=== PATIENT | female | born 1970 | race Caucasian/White ===

== ENCOUNTER 2024-04-29 01:29 | Emergency (ER) | payer MEDICAID, SELFPAY ==
[2024-04-29] VITALS (14 sets, daily range): BP systolic 100–151; BP diastolic 62–106; PULSE 58–102; RESP 18–26; TEMP 36.3–37.2; O2SAT 94–100; BMI 21.5
--- NOTE | ~2024-04-29 | CT_ITS ---
EXAMINATION: CT HEAD WITHOUT CONTRAST CLINICAL INFORMATION: Change in mental status COMPARISON: None available. TECHNIQUE: Contiguous axial imaging was performed from the skull base to vertex without intravenous administration of contrast. This CT examination was performed using dose optimization techniques as appropriate, variously including the following: *Automated exposure control *Adjustment of mA and/or kV according to patient size (this includes techniques or standardized protocols for targeted exams where dose is matched to indication/reason for exam; i.e. extremities or head) *Use of iterative reconstruction technique DLP: 667 mGy-cm FINDINGS: There is no mass hemorrhage or cerebral edema. The ventricles and basal cisterns are normal. Soft tissue/scalp normal. Calvarium/bone: Normal. No fracture. Sinuses: Prominent mucosal thickening of the ethmoid sinuses and left sphenoid sinus. Mastoid air cells clear. CT/CT head/brain wo IV con IMPRESSION: 1. No acute intracranial pathology. 2. Sinus disease likely chronic.
--- NOTE | 2024-04-29 01:44 | MHC.EDTECH ---
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
[2024-04-29] MEDS: LORazepam 2 MG/ML VIAL IM ×2 (02:15→03:24)
[2024-04-29] MEDS: Haloperidol Lactate 5 MG/ML VIAL IM (02:15)
--- NOTE | 2024-04-29 02:26 | MHC.EDTECH ---
Patient vomited all over herself and on the floor ,bed bath given and bedding change,Patient very restless yelling and removing school lunch monitor and Pulse ox ,RN Freya aware ,Will attached school lunch monitor and Pulse ox once Pt calm
--- NOTE | 2024-04-29 02:31 | PC.NURSE ---
pt IM per MAR
--- NOTE | 2024-04-29 02:49 | PC.NURSE ---
sitter at bedside, pt removing gown and blankets, trying to climb out of bed, up on all 4s rolling around and yelling. pt very restless, unable to redirect. unable to obtain vitals at this time. provider aware.
--- NOTE | 2024-04-29 03:15 | ED_ITS ---
HPI - Overdose General Chief Complaint: Overdose Stated Complaint: OVERDOSE Time Seen by Provider: 04/29/24 02:10 Source: patient and EMS Mode of arrival: EMS Limitations: altered mental status History of Present Illness ED Provider: frank GUZMAN Narrative: Patient's history of substance abuse was found unresponsive out door PD gave 1 dose of 4 mg intranasal Narcan patient is admitted using 1 bag of heroin. Patient is very agitated after Narcan no signs of head injury Related Data Allergies Allergy/AdvReac Type Severity Reaction Status Date / Time No Known Allergies Allergy Verified 04/29/24 02:16 [No Known Allergies*] Review of Systems 2 Review of Systems: Yes Unobtainable due to mental status PMFSH Social History Social History Advance Directives: No Advance Directives Information Provided: No Physical Exam 2 Vital Signs: Vital Signs: Last Vital Signs Temp 97.4 F 04/29/24 06:17 Pulse 72 04/29/24 06:17 Resp 24 H 04/29/24 06:17 BP 120/79 04/29/24 06:17 Pulse Ox 98 04/29/24 06:17 O2 Del Method Room Air 04/29/24 06:17 BMI result Body Mass Index 21.5 Appearance: Awake but agitated. Thrashing all over. Eyes: PERRLA, No Nystagmus ENT: Pharynx normal. Oral Mucosa moist Neck: Normal inspection. Neck supple. CVS: Normal heart rate and rhythm. Pulses normal. Respiratory: No respiratory distress. Equal air entry bilateral, no wheezing/rales/rhonchi Abdomen: Soft and nontender. Bowel sounds are present, no mass palpable, no CVA tenderness Skin: Skin warm and dry. Normal skin color. Normal skin turgor. Extremities: No lower extremity edema. No calf tenderness Neuro: Alert and awake but agitated No motor deficit. Course Course Course Narrative: placed in physician observation at 739am pending recovering from IM medications and substance abuse, once awake will assess for recovery and detox needs. VS stable, MARIELLA 04/29/24 740am Medications Administered Discontinued Medications Generic Name Dose Route Start Last Admin Trade Name Freq PRN Reason Stop Dose Admin Diphenhydramine HCl 50 mg 04/29/24 03:12 04/29/24 03:24 Diphenhydramine Hcl 50 Mg/Ml Vial IM 04/29/24 03:13 50 mg ONCE ONE Administration Haloperidol Lactate 5 mg 04/29/24 02:10 04/29/24 02:15 Haloperidol Lactate 5 Mg/Ml Vial IM 04/29/24 02:11 5 mg ONCE ONE Administration Sodium Chloride 1,000 mls @ 999 mls/hr 04/29/24 06:06 04/29/24 06:14 Ns IV 04/29/24 07:06 999 mls/hr .Q1H1M ONE Administration Ketamine HCl 100 mg 04/29/24 05:33 04/29/24 05:59 Ketamine Hcl 500 Mg/5 Ml Vial IM 04/29/24 05:34 100 mg ONCE ONE Administration Lorazepam 2 mg 04/29/24 02:10 04/29/24 02:15 Lorazepam 2 Mg/Ml Vial IM 04/29/24 02:11 2 mg STAT STA Administration Lorazepam 2 mg 04/29/24 03:12 04/29/24 03:24 Lorazepam 2 Mg/Ml Vial IM 04/29/24 03:13 2 mg STAT STA Administration Medical Decision Making Medical Decision Making [facility] Narrative: Patient with heroin overdose post Narcan reversal patient is very agitated requiring multiple doses of sedative ultimately responded to ketamine patient's labs are stable CK was elevated to 810 was given IV fluids once patient's wakes of will get care team consultation Differential Diagnosis Differential Diagnoses: The differential diagnosis associated with the presentation includes Lab Data [facility] Lab Attestation statement: I reviewed the patient's lab results. 04/29/24 05:11 04/29/24 05:11 Labs: Lab Results 04/29/24 04/29/24 Range/Units 04:36 05:11 WBC 11.3 H (4.8-10.8) X10*3/uL RBC 4.75 (4.20-5.50) X10*6/uL Hgb 13.9 (12.0-16.0) g/dl Hct 41.8 (37.0-47.0) % MCV 88.0 (80.0-98.0) fL MCH 29.3 (27.0-33.0) pg MCHC 33.3 (31.0-35.0) g/dl RDW 14.2 (11.0-16.0) % Plt Count 240 (160-400) X10*3/uL MPV 9.2 L (9.4-12.3) fL Immature Gran % (Auto) 0.3 (0.0-0.4) % Neut % (Auto) 83.7 H (45-73) % Lymph % (Auto) 8.7 L (20-40) % [place] % (Auto) 6.3 (2-11) % Eos % (Auto) 0.4 (0-4) % Baso % (Auto) 0.6 (0-2) % Lymph # (Auto) 1.0 L (1.2-4.9) X10*3/uL [place] # (Auto) 0.7 (0.1-1.2) X10*3/uL Eos # (Auto) 0.1 (0.0-0.4) X10*3/uL Baso # (Auto) 0.1 (0.0-0.2) X10*3/uL Abs Immat Gran (auto) 0.03 (0.00-0.03) X10*3/uL Absolute Neuts (auto) 9.5 H (2.0-8.3) x10*3/uL Absolute Nucleated RBC 0.000 (0.0-0.012) X10*3/uL Nucleated RBC % (auto) 0.0 (0.0-0.2) /100WBC Sodium 145 (135-145) mmol/L Potassium 3.3 (3.3-5.1) mmol/L Chloride 105 (96-108) mmol/L Carbon Dioxide 23 (22-29) mmol/L Anion Gap 20 (12-20) BUN 14 (9-16) mg/dL Creatinine 0.79 (0.5-1.4) mg/dL Estim Creat Clear Calc 68.9 Estimated GFR > 60 Random Glucose 100 (60-115) mg/dL Calcium 9.7 (8.4-10.2) mg/dL Magnesium 1.8 (1.6-2.6) mg/dL Total Bilirubin 0.4 (0.0-1.0) mg/dL AST 50 H (5-31) U/L ALT 29 (0-31) U/L Alkaline Phosphatase 70 (39-117) U/L Ammonia 26 (13-55) umol/L Total Creatine Kinase 810 H (26-140) U/L Total Protein 7.9 (6.5-8.0) g/dL Albumin 4.2 (3.5-5.0) g/dL COVID-19 (SHEYLA) Negative (Negative) COVID-19 Clin Com See Note Discharge Plan Discharge Clinical Impression: Rhabdomyolysis Drug overdose Qualifiers: Encounter type: initial encounter Injury intent: accidental or unintentional Q ualified Code(s): T50.901A - Poisoning by unspecified drugs, medicaments and biological substances, accidental (unintentional), initial encounter Patient Disposition: Still a Patient Print Language: Bulgarian
[2024-04-29] MEDS: diphenhydrAMINE HCL 50 MG/ML VIAL IM (03:24)
--- NOTE | 2024-04-29 03:32 | PC.NURSE ---
pt remains restless and rolling around in the bed, trying to get out of bed over the rails. pt IM per MAR
--- NOTE | 2024-04-29 04:25 | PC.NURSE ---
pt broke BP cuff while trying to obtain vitals d/t restlessness in bed
[2024-04-29 05:00] LABS: COVID-19 Test Negative (Negative); IDNOW Serial# 6674DD1D
[2024-04-29 05:16] LABS: Basophils Absolute Auto 0.1 X10*3/uL (0.0-0.2); Basophils Percent Auto 0.6 % (0-2); Eosinophils Absolute Auto 0.1 X10*3/uL (0.0-0.4); Eosinophils Percent Auto 0.4 % (0-4); Hematocrit 41.8 % (37.0-47.0); Hemoglobin 13.9 g/dl (12.0-16.0); Imm Gran Abs Auto 0.03 X10*3/uL (0.00-0.03); Imm Gran Pct Auto 0.3 % (0.0-0.4); Lymphocytes Percent Auto 8.7 % (20-40); MANUAL DIFF FLAG NO; Mean Corpuscular HGB Conc 33.3 g/dl (31.0-35.0); Mean Corpuscular Hemoglobin 29.3 pg (27.0-33.0); Mean Platelet Volume 9.2 fL (9.4-12.3); Monocytes Absolute Auto 0.7 X10*3/uL (0.1-1.2); Monocytes Percent Auto 6.3 % (2-11); Neutrophils Absolute Auto 9.5 x10*3/uL (2.0-8.3); Neutrophils Percent Auto 83.7 % (45-73); Platelet Count 240 X10*3/uL (160-400); Red Blood Count 4.75 X10*6/uL (4.20-5.50); Red Cell Distribution Width 14.2 % (11.0-16.0); White Blood Count 11.3 X10*3/uL (4.8-10.8)
--- NOTE | 2024-04-29 05:17 | PC.NURSE ---
vitals and labs obtained
--- NOTE | 2024-04-29 05:23 | PC.NURSE ---
pt attempting to bite staff, pt remains restless unable to keep on monitor
[2024-04-29 05:32] LABS: Ammonia 26 umol/L (13-55)
[2024-04-29 05:41] LABS: Alanine Aminotransferase 29 U/L (0-31); Albumin Level 4.2 g/dL (3.5-5.0); Alkaline Phosphatase 70 U/L (39-117); Anion Gap 20 (12-20); Aspartate Amino Transferase 50 U/L (5-31); Bilirubin Total 0.4 mg/dL (0.0-1.0); Blood Urea Nitrogen 14 mg/dL (9-16); Calcium 9.7 mg/dL (8.4-10.2); Carbon Dioxide 23 mmol/L (22-29); Chloride 105 mmol/L (96-108); Creatinine Clr Calc Pharmacy 68.9; Estimated Glomerular Filt Rate > 60; Glucose Random 100 mg/dL (60-115); Magnesium 1.8 mg/dL (1.6-2.6); Potassium 3.3 mmol/L (3.3-5.1); Sodium 145 mmol/L (135-145); Total Protein 7.9 g/dL (6.5-8.0)
[2024-04-29] MEDS: Ketamine HCl 500 MG/5 ML VIAL 100 MG IM (05:59)
--- NOTE | 2024-04-29 06:03 | PC.NURSE ---
pt medicated per cristy ROMANOter remains at bedside
[2024-04-29] MEDS: 0.9 % Sodium Chloride 1,000 ML 999 ML IV ×2 (06:14→16:08)
--- NOTE | 2024-04-29 06:15 | PC.NURSE ---
pt now calm and cooperative at this time, resting comfortably with eyes closed, breathing even and unlabored. 20g IV placed to L forearm, wrapped for safety. IVF infusing, full set of vitals obtained. pt on monitor
--- NOTE | 2024-04-29 08:56 | PC.NURSE ---
Pt sleeping at this time, breathing even and unlabored. NSR on hospital monitor, VSS. Camera in place.
--- NOTE | 2024-04-29 13:46 | PC.NURSE ---
Pt continues to sleep, vitals stable, NSR on director of cardiac cath lab. Pt bladder scanned, charted. Pt does turn over in bed, moans.
--- NOTE | 2024-04-29 15:27 | PC.NURSE ---
Pt taken to CT scan
--- NOTE | 2024-04-29 16:30 | PC.NURSE ---
Per MD order, straight cath pt due to no urine output >8 hours. Pt straight cath with no issues, output of approx 300 mL yellow urine. Rectal temp 99.0F. Pt has no verbal response, does withdrawal from pain.
[2024-04-29 16:32] LABS: MANUAL DIFF FLAG NO
[2024-04-29 16:34] LABS: Basophils Absolute Auto 0.1 X10*3/uL (0.0-0.2); Basophils Percent Auto 0.8 % (0-2); Eosinophils Absolute Auto 0.2 X10*3/uL (0.0-0.4); Eosinophils Percent Auto 2.2 % (0-4); Hematocrit 37.9 % (37.0-47.0); Hemoglobin 12.9 g/dl (12.0-16.0); Imm Gran Abs Auto 0.03 X10*3/uL (0.00-0.03); Imm Gran Pct Auto 0.3 % (0.0-0.4); Lymphocytes Absolute Auto 1.8 X10*3/uL (1.2-4.9); Lymphocytes Percent Auto 19.6 % (20-40); Mean Corpuscular Hemoglobin 29.7 pg (27.0-33.0); Mean Corpuscular Volume 87.1 fL (80.0-98.0); Mean Platelet Volume 9.3 fL (9.4-12.3); Monocytes Absolute Auto 0.8 X10*3/uL (0.1-1.2); Monocytes Percent Auto 8.8 % (2-11); Neutrophils Absolute Auto 6.3 x10*3/uL (2.0-8.3); Neutrophils Percent Auto 68.3 % (45-73); Platelet Count 214 X10*3/uL (160-400); Red Blood Count 4.35 X10*6/uL (4.20-5.50); Red Cell Distribution Width 14.5 % (11.0-16.0); White Blood Count 9.2 X10*3/uL (4.8-10.8)
[2024-04-29 16:37] LABS: VBG Base Excess 0.5 mmol/L; VBG HCO3 23 mmol/L (22-26); VBG pCO2 33 mmHg; VBG pH 7.45 (7.32-7.43); VBG pO2 76 mmHg
[2024-04-29 16:37] LABS: Venous Blood Gas Refer to POC result
[2024-04-29 16:40] LABS: Amphetamine Screen Urine Not Detected (Not Detect); Barbiturates, Urine Not Detected (Not Detect); Benzodiazepines Screen Urine Not Detected (Not Detect); Buprenorphine Scr Not Detected (Not Detect); Cannabinoid Screen Urine Not Detected (Not Detect); Cocaine Screen Urine POSITIVE (Not Detect); Fentanyl, urine POSITIVE (Not Detect); Methadone Screen, Urine Not Detected (Not Detect); Opiate Screen Urine POSITIVE (Not Detect); Oxycodone Screen Urine Not Detected (Not Detect); Phencyclidine Screen Urine Not Detected (Not Detect)
[2024-04-29 16:49] LABS: Anion Gap 13 (12-20); Blood Urea Nitrogen 10 mg/dL (9-16); Calcium 8.8 mg/dL (8.4-10.2); Carbon Dioxide 22 mmol/L (22-29); Chloride 112 mmol/L (96-108); Creatinine Clr Calc Pharmacy 83.7; Estimated Glomerular Filt Rate > 60; Glucose Random 84 mg/dL (60-115); Potassium 3.7 mmol/L (3.3-5.1); Sodium 143 mmol/L (135-145)
[2024-04-29 18:25] LABS: Appearance Urine Clear; Color Urine Yellow; Glucose Urine UA Negative (Negative); Leukocyte Esterase Urine Negative (Negative); Nitrite Urine Negative (Negative); UMIC TRIGGER UACC YES; Urine Blood Moderate (2+) (Negative); Urine Ketones Negative (Negative); Urine Protein Negative (Neg-Trace)
[2024-04-29 18:31] LABS: Bacteria Urine None Seen (None Seen); Hyaline Casts Urine 0-2 /LPF (0-2); RBC Urine >20 /HPF (0-2); Squamous Epithelial Cell Urine 0-2 /HPF (0-2); WBC Urine 0-5 /HPF (0-5)
--- NOTE | 2024-04-29 22:05 | PC.NURSE ---
pt resting comfortably in bed with eyes closed, breathing even and unlabored. no apparent distress noted at this time. call kingsley w/in reach. camera in place for safety
[2024-04-30] VITALS: BP 114/56; PULSE 55; RESP 15; TEMP 36.4; O2SAT 96
[2024-04-30 02:00] VITALS: BP 150/87; PULSE 50; RESP 20; TEMP 36.4; O2SAT 98
--- NOTE | 2024-04-30 03:18 | PC.NURSE ---
pt awakens to verbal stim, gave juice. pt then went back to bed
[2024-04-30 04:00] VITALS: BP 117/75; PULSE 55; RESP 12; TEMP 36.6; O2SAT 97
--- NOTE | 2024-04-30 05:39 | PC.NURSE ---
pt awake at this time, incont of urine in bed. assist to bathroom to wash and change gown. bed cleaned. pt given juice and sandwich.
[2024-04-30 05:57] VITALS: BP 112/64; PULSE 59; RESP 14; TEMP 36.4; O2SAT 95
--- NOTE | 2024-04-30 06:57 | PC.NURSE ---
pt awake, eating breakfast. refusing to answer assessment questions
--- NOTE | 2024-04-30 07:11 | PC.NURSE ---
report recieved from previous rn, patient resting on stretcher, was woken up by MD, patient provided with breakfast tray, stating to this RN that she does not want to eat it, this RN asked patient where she would go if she was discharged, patient states to my house asked patient if there would be anyone there to let her in, patient states that there is.
--- NOTE | 2024-04-30 08:26 | PC.NURSE ---
patient resting on stretcher, awakes when this RN calls her name, was walked to bathroom by EDT, not requesting detox or treatment at this time. made aware
--- NOTE | 2024-04-30 08:27 | PC.NURSE ---
patient denies SI/HI
[2024-04-30 08:42] VITALS: BP 128/76; PULSE 79; RESP 18; TEMP 37; O2SAT 100
--- NOTE | 2024-04-30 08:49 | PC.NURSE ---
patient ambulatory with steady gait out of department, discharge instructions reviewed, patient states she does not have a phone on her and she does not have a number she can call, but she states she will walk home.
== END 2024-04-30 08:49 | disposition home or self-care (01) ==
PROVIDERS: Emergency Medicine; Internal Medicine; Emergency Provider Emergency Medicine
DX: M62.82 Rhabdomyolysis (principal); T40.1X1A Poisoning by heroin, accidental (unintentional), initial encounter; R40.4 Transient alteration of awareness; Y92.9 Unspecified place or not applicable; F19.10 Other psychoactive substance abuse, uncomplicated; R45.1 Restlessness and agitation; R33.9 Retention of urine, unspecified; Z11.52 Encounter for screening for COVID-19
CPT/HCPCS: 36415; 51701; 70450; 80048; 80053; 80307; 81001; 82140; 82550; 82803; 83735; 85025; 87635; 96360; 96361; 96372; 99285; J1200; J1630; J2060

== ENCOUNTER 2025-02-22 20:33 | Emergency (ER) | payer MEDICAID, SELFPAY ==
[2025-02-22 20:36] VITALS: BP 126/74; PULSE 98; O2SAT 96; BMI 20.1
--- NOTE | 2025-02-22 20:46 | ECG_ITS ---
Test Reason : OD Blood Pressure : */* mmHG Vent. Rate : 90 BPM Atrial Rate : 90 BPM P-R Int : 132 ms QRS Dur : 74 ms QT Int : 380 ms P-R-T Axes : 49 61 45 degrees QTcB Int : 464 ms Normal sinus rhythm Possible Left atrial enlargement Cannot rule out Anteroseptal infarct , age undetermined Abnormal ECG When compared with ECG of 03-Jan-2013 15:29, Possible Anteroseptal infarct Present Referred By: Generic ED Physician Electronically Signed By: WINNIE HENRY MD
[2025-02-22 20:51] VITALS: BP 125/81; PULSE 90; RESP 16; TEMP 36.6; O2SAT 97
--- NOTE | 2025-02-22 21:14 | ED_ITS ---
HPI - Overdose General Chief Complaint: Overdose Stated Complaint: OD, no narcan given, ca&0 Time Seen by Provider: 02/22/25 20:49 History of Present Illness ED Provider: Madan Grajeda MD HPI Narrative: This is a 54-year-old female brought in by EMS after police found her slumped over on a curb. She was not administered any naloxone or reversal agents and was maintaining airway. Minimal history provided by the patient and she was uncooperative and drowsy but easily arousable on arrival. No obvious external signs of trauma. She did not require opioid reversal on arrival Related Data Allergies Allergy/AdvReac Type Severity Reaction Status Date / Time No Known Allergies Allergy Verified 02/22/25 20:42 [No Known Allergies*] [facility] Social History Social History Unable to assess alcohol history related to: Unknown Alcohol intake: unknown Use of substances other than those prescribed or required for medical reasons: Unknown Advance Directives: No Do you have a plan to hurt others: No Plan Physical Exam 2 Vital Signs: Vital Signs: Last Vital Signs Temp 97.6 F 02/23/25 21:11 Pulse 76 02/23/25 21:11 Resp 16 02/23/25 21:11 BP 133/66 02/23/25 21:11 Pulse Ox 96 02/23/25 21:11 O2 Del Method Room Air 02/23/25 21:11 BMI result Body Mass Index 20.1 Const: Other: EXAM: Gen: Drowsy but easily arousable no obvious external signs of trauma. She has 3-4 mm pupils symmetric and reactive Head: Atraumatic Eyes: Anicteric, Normal conjunctiva. ENT: Moist mucosa, no pallor. ? Neck: Supple. Skin: ?No observable rash or bruising on exposed or examined skin Respiratory: Breathing comfortably, No distress.Clear to auscultation bilaterally, symmetric chest expansion, No wheeze, rales, ronchi. Cardiovascular: Regular rate and rhythm. No murmurs or rub. Well perfused periphery, warm extremities. No edema. ? Abdominal: No FOCAL TENDERNESS. Soft, no objective distension. No palpable masses or obvious organomegaly. ?No guarding, no rebound tenderness or other peritoneal findings. : No flank tenderness. Neuro: Alert. Gross movement of all extremities intact. ? Psych: Calm. Cooperative. MSK: No grossly visible deformity. Vital signs: See flowsheet Course Reevaluation(s) Reevaluation #1: 02/23/25 - 18:03- Physician observation continued. Patient difficult to arouse and will not answer questions. Will continue until she is more participatory Reevaluation #2: patient received in sign-out at change of shift pending sober re-evaluation. The patient is awake, alert and oriented. she reports that she still feels tired. She has been up to the bathroom, she was provided a sandwich, crackers and a yvette zenobia which she ate some of. She is stable for Time: 20:27 Medications Administered Discontinued Medications Generic Name Dose Route Start Last Admin Trade Name Freq PRN Reason Stop Dose Admin Naloxone HCl 8 mg 02/23/25 20:28 02/23/25 20:47 Naloxone Hcl Nasal Take Home 4 Mg [place] NOSTRILALT 02/23/25 20:29 8 mg ONCE ONE Administration Medical Decision Making Medical Decision Making [facility] Narrative: 54-year-old female uncooperative with history taking exam does not suggest acute medical emergency. Labs were reassuring. She is protecting airway and has a reasonable respiratory rate above 10 she did not not need opioid reversal. No traumatic injuries or other identifiable actionable findings on labs or workup thus far. Patient needs continued monitoring for sobriety and reassessment signed out to overnight physician. Differential Diagnosis Differential Diagnoses: The differential diagnosis associated with the presentation includes Toxicologic or metabolic encephalopathy, injury, electrolyte derangement, dehydration, psychosocial issue, Lab Data [facility] Lab Attestation statement: I reviewed the patient's lab results. 02/23/25 00:08 02/22/25 21:13 Labs: Lab Results 02/22/25 02/23/25 Range/Units 21:13 00:08 WBC 6.9 (4.8-10.8) X10*3/uL RBC 4.60 (4.20-5.50) X10*6/uL Hgb 13.6 (12.0-16.0) g/dl Hct 40.5 (37.0-47.0) % MCV 88.0 (80.0-98.0) fL MCH 29.6 (27.0-33.0) pg MCHC 33.6 (31.0-35.0) g/dl RDW 13.7 (11.0-16.0) % Plt Count 218 (160-400) X10*3/uL MPV 8.8 L (9.4-12.3) fL Immature Gran % (Auto) 0.1 (0.0-0.4) % Neut % (Auto) 57.4 (45-73) % Lymph % (Auto) 27.1 (20-40) % [place] % (Auto) 10.0 (2-11) % Eos % (Auto) 4.2 H (0-4) % Baso % (Auto) 1.2 (0-2) % Lymph # (Auto) 1.9 (1.2-4.9) X10*3/uL [place] # (Auto) 0.7 (0.1-1.2) X10*3/uL Eos # (Auto) 0.3 (0.0-0.4) X10*3/uL Baso # (Auto) 0.1 (0.0-0.2) X10*3/uL Abs Immat Gran (auto) 0.01 (0.00-0.03) X10*3/uL Absolute Neuts (auto) 3.9 (2.0-8.3) x10*3/uL Absolute Nucleated RBC 0.000 (0.0-0.012) X10*3/uL Nucleated RBC % (auto) 0.0 (0.0-0.2) /100WBC Sodium 139 (135-145) mmol/L Potassium 4.3 (3.3-5.1) mmol/L Chloride 106 (96-108) mmol/L Carbon Dioxide 24 (22-29) mmol/L Anion Gap 13 (12-20) BUN 10 (9-16) mg/dL Creatinine 0.65 (0.5-1.4) mg/dL Estim Creat Clear Calc 90.4 Estimated GFR > 60 Random Glucose 108 (60-115) mg/dL Calcium 9.0 (8.4-10.2) mg/dL Total Bilirubin 0.3 (0.0-1.0) mg/dL AST 31 (5-31) U/L ALT 14 (0-31) U/L Alkaline Phosphatase 57 (39-117) U/L Total Protein 7.1 (6.5-8.0) g/dL Albumin 3.9 (3.5-5.0) g/dL Ethyl Alcohol 13 mg/dL Discharge Plan Discharge Clinical Impression: Drug overdose Patient Disposition: Home, Self-Care Instructions: Adult Overdose (ED) Additional Instructions: Opiate use disorder You were seen in our Emergency Department today for treatment of opiate use disorder. You may have been dosed with medication for opiate use disorder (MOUD) in the form of suboxone or methadone. You may experience feeling some withdrawal symptoms and this is normal. The? dose in the Emergency Department is a starting dose and meant to be titrated up once you follow up with a clinic. Please do not feel discouraged, it is a process. The nurse has reviewed with you where to follow up and what information to bring with you, to continue treatment. You also may have been given naloxone (narcan) to take home with you. This medication is used to potentially treat opiate overdose. If you decide you want to stop or cut down on how much you?re using, you can call or walk into our outpatient Addiction Treatment office: [facility] (M-F 9am-5p) [address] [place] [address], [address] [phone] You may have been provided with safer injection?items, please take time to take care of YOU and your health. Use new supplies whenever possible to lessen the chances of infections and other illnesses.? ?If you need more supplies, please go [facility],? [address] [place] [address] OR you can call or text to coordinate delivery of safer supplies. You were also provided a list of several treatment providers in the area.? If you experience any worsening symptoms you cannot control please return to the ED or call 911. Please follow up at your next appointment. Things to look out for are fevers, chest pain, shortness of breath, severe pain, dizziness, fainting or any other concerns. Interventions: ED Discharge Assessment Last Done: 02/23/25 21:11 Discharge Date/Time: 02/23/25 21:11 Print Language: Montenegrin
[2025-02-22 21:37] LABS: Alanine Aminotransferase 14 U/L (0-31); Albumin Level 3.9 g/dL (3.5-5.0); Alkaline Phosphatase 57 U/L (39-117); Anion Gap 13 (12-20); Aspartate Amino Transferase 31 U/L (5-31); Bilirubin Total 0.3 mg/dL (0.0-1.0); Blood Urea Nitrogen 10 mg/dL (9-16); Carbon Dioxide 24 mmol/L (22-29); Chloride 106 mmol/L (96-108); Creatinine Clr Calc Pharmacy 90.4; Estimated Glomerular Filt Rate > 60; Ethanol 13 mg/dL; Glucose Random 108 mg/dL (60-115); Potassium 4.3 mmol/L (3.3-5.1); Sodium 139 mmol/L (135-145); Total Protein 7.1 g/dL (6.5-8.0)
--- OUTSIDE RECORDS SUMMARY | 2025-02-22 23:15 | XMS_ITS | Clinical Summary ---
Author Organization [facility] Address [address] [place] [address] Care Team Providers Care Correctional Officer Captain Name Role Phone Unavailable Primary Care Provider Unavailabl e Encounters Date Type Department Care Team Description 11/24/2024 Population Health Risk Score [facility] (C3) Department [address] [place] [address] Provider, Population Health Generic from Last 3 Months Immunizations Immunization Administration Dates Next Due Hep B, adult 06/24/2017,12/02/2016,10/29/2016 Influenza injectable quadriv alent IIV4 with preservative 06/24/2017 Influenza, IIV3, injectable 05/29/2014 Influenza, Split (incl. zandra fied surface antigen) 09/30/2012 Social History Tobacco Use Types Packs/Day Years Used Date Smoking Tobacco: Never Assessed Comments Unknown Sex and Gender Information Value Date Recorded Sex Assigned at Female 07/13/2022 10:15 AM EDT Legal Sex Female 10:15 AM EDT Gender Identity Female 08/28/2024 8:54 AM EST Sexual Orientation Straight 08/28/2024 8: 54 AM EST Plan of Treatment Health Maintenance Due Date Last Done Comments CT Colonography 1972 Colonoscopy 1972 Colorectal Cancer Screening 1972 Depression Screening 1972 FIT DNA/Cologuard 1972 FIT 1972 FOBT 1972 HIV Screening 1972 SDOH Screening 1972 Sigmoidoscopy 1972 Disability Screening 1972 Alcohol/Substance Use Screening 1984 Tobacco Screening 1984 Family Planning (PISQ) 1987 Hepatitis C Screening 1990 DTaP/Tdap/Td Vaccines (1 - Tdap) 1991 Pap Smear 1993 Cervical Cancer Screening 2002 HPV/Cotest 2002 Mammogram 2012 Pneumococcal Vaccine: 50+ Years (1 of 1 - PCV) 2022 Zoster Vaccines (1 of 2) 2022 COVID-19 Vaccine (1 - 2023-2 5 season) 2024 Influenza Vaccine (Season Ended) 2025 06/24/2017, 05/29/2014, 09/30/2012 RSV Patients and Patients Aged 60 years or older (1 - 1-dose 75+ series) 2047 Hepatitis B Vaccines Completed 06/24/2017, 12/02/2016, 10/29/2016 HIB Vaccines Aged Out No longer eligi ble based on patient's age to complete this topic HPV Vaccines Aged Out No longer eligi ble based on patient's age to complete this topic Hepatitis A Vaccines Aged Out No long er eligible based on patient's age to complete this topic IPV Vaccines Aged Out No longer eligi ble based on patient's age to complete this topic Meningococcal B Vaccine Aged Out No l onger eligible based on patient's age to complete this topic Meningococcal Vaccine Aged Out No mu pilar eligible based on patient's age to complete this topic RSV under 20 months Aged Out No longe r eligible based on patient's age to complete this topic Rotavirus Vaccines Aged Out No longer eligible based on patient's age to complete this topic Insurance [facility] C3
--- NOTE | 2025-02-22 23:25 | PC.NURSE ---
Pt resting quietly on stretcher, callbell in reach. Pt arouseable to painful stimlui. Pt repositioned, maintaining airway and satting 93-94% on RA
[2025-02-23] VITALS (7 sets, daily range): BP systolic 100–138; BP diastolic 61–77; PULSE 70–77; RESP 11–17; TEMP 36.4–37.1; O2SAT 93–99
[2025-02-23 00:12] LABS: Basophils Absolute Auto 0.1 X10*3/uL (0.0-0.2); Basophils Percent Auto 1.2 % (0-2); Eosinophils Absolute Auto 0.3 X10*3/uL (0.0-0.4); Eosinophils Percent Auto 4.2 % (0-4); Hematocrit 40.5 % (37.0-47.0); Hemoglobin 13.6 g/dl (12.0-16.0); Imm Gran Abs Auto 0.01 X10*3/uL (0.00-0.03); Imm Gran Pct Auto 0.1 % (0.0-0.4); Lymphocytes Absolute Auto 1.9 X10*3/uL (1.2-4.9); Lymphocytes Percent Auto 27.1 % (20-40); Mean Corpuscular HGB Conc 33.6 g/dl (31.0-35.0); Mean Corpuscular Hemoglobin 29.6 pg (27.0-33.0); Mean Platelet Volume 8.8 fL (9.4-12.3); Monocytes Absolute Auto 0.7 X10*3/uL (0.1-1.2); Neutrophils Absolute Auto 3.9 x10*3/uL (2.0-8.3); Neutrophils Percent Auto 57.4 % (45-73); Platelet Count 218 X10*3/uL (160-400); Red Cell Distribution Width 13.7 % (11.0-16.0); White Blood Count 6.9 X10*3/uL (4.8-10.8)
--- NOTE | 2025-02-23 09:00 | PC.NURSE ---
Pt has been sleeping since this RN arrival. Chest right noted. skin warm and dry.
--- NOTE | 2025-02-23 09:10 | PC.NURSE ---
Moved to [place]. NAD. did not wake during transfer
--- NOTE | 2025-02-23 15:29 | PC.NURSE ---
DAVID Thomas at bedside speaking with patient. Has been sleeping throughout this RN's shift.
[2025-02-23] MEDS: Naloxone HCl Nasal TAKE HOME 4 MG SPRAY 8 MG NOSTRILALT (20:47)
--- NOTE | 2025-02-23 21:08 | PC.NURSE ---
pt being d/c, provider explained with cigar binder Jairon. Jairon and security at bedside during d/c teachings. Pt slow to get up, expresses that she is tired. Jerel RAMU aware. We re explained she unfortunately was d/c as all test came back normal. Pt d/c with belongings and x2 narcan to waiting room. hospital pharmacist aware
== END 2025-02-23 21:11 | disposition home or self-care (01) ==
PROVIDERS: Emergency Provider Emergency Medicine
DX: T50.991A Poisoning by other drugs, medicaments and biological substances, accidental (unintentional), initial encounter (principal); T65.91XA Toxic effect of unspecified substance, accidental (unintentional), initial encounter; R40.4 Transient alteration of awareness; R94.31 Abnormal electrocardiogram [ECG] [EKG]; Y92.9 Unspecified place or not applicable; Z51.81 Encounter for therapeutic drug level monitoring; Z79.899 Other long term (current) drug therapy
CPT/HCPCS: 36415; 80053; 80307; 85025; 93005; 99283; 99285

== ENCOUNTER → 2025-02-22 20:46 | Outpatient (BNV) | payer MEDICAID, SELFPAY | PROVIDERS: Emergency Provider Emergency Medicine; Visit Provider Internal Medicine Cardiovascular Disease | DX: R94.31 Abnormal electrocardiogram [ECG] [EKG] (principal); T50.901A Poisoning by unspecified drugs, medicaments and biological substances, accidental (unintentional), initial encounter | CPT/HCPCS: 93010 ==

== ENCOUNTER 2025-03-05 15:45 | Emergency (ER) | payer MEDICAID, SELFPAY ==
[2025-03-05 15:55] VITALS: BP 118/76; PULSE 87; O2SAT 94; BMI 27.0
--- NOTE | 2025-03-05 16:01 | PC.NURSE ---
pt biba after being found outside of [facility] s/p accidental overdose on either crack cocaine or heroin. unknown amount. EMS administered 4mg IN narcan [employer] w/ arrival. 2L via NC upon EMS arrival as patient became hypoxic. pt agitated/uncooperative upon EMS arrival. demanding to get off of stretcher and walk out. pt refusing to be seen in room. refusing vitals. diaphoretic. MD went bedside to assess/discuss risk factors of leaving AMA. pt registered w/ registration/signed AMA form. ambulated out of ED w/ steady gait in no apparent respiratory distress.
--- NOTE | 2025-03-05 16:02 | ED_ITS ---
HPI - Overdose General Chief Complaint: Overdose Stated Complaint: heroine use, Narcan, semi alert Time Seen by Provider: 03/05/25 16:02 Source: patient and EMS Mode of arrival: EMS Limitations: no limitations History of Present Illness ED Provider: DR. Guerra HPI Narrative: I was called to a room or hole for a patient who insists to leave against medical advice, patient was found in the street after likely using an overdosing on drugs, patient received 4 mg Narcan prior to arrival, angry and uncooperative for being in the ER and was given Narcan, patient wanted to leave against medica l advice, patient is sweating patient refuse to check her vital sign, no SI, no HI, no hallucination, patient is AAO x3, Narcan can wear off and patient can stop breathing and patient still insists to leave before full evaluation pending patient signed against medical advice. Related Data Allergies Allergy/AdvReac Type Severity Reaction Status Date / Time No Known Allergies (No Known Allergy Verified 03/05/25 15:57 Allergies*) Review of Systems Review of Systems: Unobtainable due to [facility] Social History Social History Unable to assess alcohol history related to: Unknown Alcohol intake: unknown Advance Directives: No Advance Directives Information Provided: No Do you have a plan to hurt others: No Plan Physical Exam Vital Signs: Vital Signs: BMI result Body Mass Index 27.0 Patient refuse medical examination. Course Reevaluation(s) Reevaluation #1: Patient will be leaving against medical advice before full evaluation. Discharge Plan Discharge Clinical Impression: Drug overdose, Accidental overdose Patient Disposition: Left Against Medical Advice Stand Alone Forms: Against Medical Advice Discharge Date/Time: 03/05/25 16:09 Print Language: Sami
--- OUTSIDE RECORDS SUMMARY | 2025-03-05 17:24 | XMS_ITS | Clinical Summary ---
Author Organization [employer] Address [address] 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 Name Role Phone Unavailable Primary Care Provider Unavailabl e Encounters Date Type Department Care Team Description 02/22/2025 Orders Only GENERIC EXTERNAL DATA DEPARTMENT Provider, Generic External Data from Last 3 Months Immunizations Immunization Administration [...] Vaccines (1 of 2) 2022 COVID-19 Vaccine (2023-2 5 season) 2024 Influenza Vaccine (Season Ended) [...] on patient's age to complete this topic Procedures Procedure Name Priority Date/Time Associated Diagnosis Comments ETHANOL Routine 02/22/2025 9:13 PM EDT COMPREHENSIVE METABOLIC PANEL Routine 02/22/2025 9:13 PM EDT from Last 3 Months Results * Ethanol (02/22/2025 9:13 PM EDT) ETHANOL (MG/DL) IN SER/PLAS 13 mg/dL [facility] Comment:Serum/plasma ethanol results are to be used formedical/treatment purposes only. 02/22/2025 9:13 PM EDT 02/22/2025 9:16 PM EDT us Generic External Data Provider LAB BLOOD ORDERAB LES Final Result [facility] [address] [place] [address] [phone] * Comprehensive Metabolic Panel (02/22/2025 9:13 PM EDT) Sodium 139 135 - 145 mmol/L [facility] Potassium 4.3 3.3 - 5.1 mmol/L [facility] Comment:Mild Hemolysis.Inter pret result with caution Chloride 106 96 - 108 mmol/L [facility] Carbon Dioxide 24 22 - 29 mmol/L [facility] Anion Gap 13 12 - 20 [facility] Urea Nitrogen (BUN) 10 9 - 16 mg/dL [facility] Creatinine, Serum 0.65 0.5 - 1.4 mg/dL [facility] Creatinine Clr Calc Pharmacy 90.4 [facility] Comment:Provided height and weight: 167.64 cm,56.6 kg.eGFR (calculated from the MDRD study equation) and eCrCl(calculated from the Cockcroft-Gault equation) are based ondifferent parameters and may not yield comparable results.If eCrCl result is absurd, please check patient'sheight/weight. Estimated Glomerular Filt Rate >60 [facility] Comment:Chronic Kidney Disea se: Estimated GFR < 60 mL/min/[id number] Kidney Disease: Estimated GFR < 15 mL/min/1.73m2 Glucose 108 60 - 115 mg/dL [facility] Calcium 9.0 8.4 - 10.2 mg/dL [facility] Bilirubin, Total 0.3 0.0 - 1.0 mg/dL [facility] Aspartate Amino Transferase 31 5 - 31 U/L [facility] Comment:Mild Hemolysis.Inter pret result with caution Alanine Aminotransferase 14 0 - 31 U/L [facility] Total Protein 7.1 6.5 - 8.0 g/dL [facility] Comment:Mild Hemolysis.Inter pret result with caution Albumin Level 3.9 3.5 - 5.0 g/dL [facility] Alkaline Phosphatase 57 39 - 117 U/L [facility] 02/22/2025 9:13 PM EDT 02/22/2025 9:16 PM EDT us Generic External Data Provider LAB BLOOD ORDERAB LES Final Result [facility] [address] [facility] [place] [id number] [phone] from Last 3 Months Insurance [facility] C[facility]
== END 2025-03-05 16:09 | disposition left against medical advice (07) ==
PROVIDERS: Emergency Provider Emergency Medicine
DX: T40.1X1A Poisoning by heroin, accidental (unintentional), initial encounter (principal); Y92.9 Unspecified place or not applicable; Z71.51 Drug abuse counseling and surveillance of drug abuser
CPT/HCPCS: 99281

== ENCOUNTER 2025-03-15 16:25 | Emergency (ER) | payer MEDICAID, SELFPAY ==
[2025-03-15] VITALS (13 sets, daily range): BP systolic 83–128; BP diastolic 45–83; PULSE 68–102; RESP 12–22; TEMP 35.3–37.9; O2SAT 94–100; BMI 23.8
--- NOTE | ~2025-03-15 | XR_ITS ---
EXAMINATION: XR CHEST CLINICAL INFORMATION: sepsis, s/p narcan unclear source COMPARISON: None available. TECHNIQUE: Frontal view of the chest was obtained. FINDINGS: No significant abnormality is noted involving the heart, lungs, mediastinum, bony thorax or soft tissues. XR/XR chest 1V IMPRESSION: Unremarkable examination. Electronically signed by: Vic Valles MD 03/15/2025 04:44 PM EDT
--- NOTE | ~2025-03-15 | CT_ITS ---
CLINICAL HISTORY: non focal encephalopathy CT head without contrast Comparison: CT/SR - CT HEAD/BRAIN WO IV CON - 04/29/24 15:20 EDT Findings: No intra-axial mass, midline shift, hydrocephalus, or acute hemorrhage. No significant atrophy-like change or white matter disease. There is opacification of the ethmoid air cells and partial opacification of the maxillary sinuses, similar to prior The orbits are within normal limits. There is no acute fracture. IMPRESSION: 1. No acute intracranial findings. 2. Paranasal sinus disease. This document has been electronically signed by: Hao Fontaine MD on 03/15/2025 21:03:44
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
[2025-03-15] MEDS: diazePAM 10 MG/2 ML CARTRIDGE 5 MG IVPUSH (16:45)
[2025-03-15 16:49] LABS: MANUAL DIFF FLAG NO
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
[2025-03-15] MEDS: Lactated Ringers 1,000 ML 999 ML IVCONT (17:04)
[2025-03-15 17:06] LABS: Hematocrit 45.1 % (37.0-47.0); Hemoglobin 15.0 g/dl (12.0-16.0); Imm Gran Abs Auto 0.04 X10*3/uL (0.00-0.03); Imm Gran Pct Auto 0.5 % (0.0-0.4); Lymphocytes Absolute Auto 2.5 X10*3/uL (1.2-4.9); Mean Corpuscular HGB Conc 33.3 g/dl (31.0-35.0); Mean Corpuscular Hemoglobin 29.5 pg (27.0-33.0); Mean Corpuscular Volume 88.8 fL (80.0-98.0); NRBC Abs Auto 0.000 X10*3/uL (0.0-0.012); NRBC Pct Auto 0.0 /100WBC (0.0-0.2); Platelet Count 251 X10*3/uL (160-400); Red Blood Count 5.08 X10*6/uL (4.20-5.50); White Blood Count 8.7 X10*3/uL (4.8-10.8)
[2025-03-15 17:13] LABS: Anion Gap 16 (12-20); Blood Urea Nitrogen 17 mg/dL (9-16); Calcium 9.6 mg/dL (8.4-10.2); Carbon Dioxide 24 mmol/L (22-29); Chloride 105 mmol/L (96-108); Creatinine Clr Calc Pharmacy 72.3; Estimated Glomerular Filt Rate > 60; Potassium 4.2 mmol/L (3.3-5.1); Sodium 141 mmol/L (135-145)
[2025-03-15 17:34] LABS: Procalcitonin 0.02 ng/mL
--- NOTE | 2025-03-15 18:15 | PC.NURSE ---
Pt more relaxed, restraints removed
[2025-03-15] MEDS: Lactated Ringers 2,000 ML 999 ML IV (18:30)
--- NOTE | 2025-03-15 18:37 | PC.NURSE ---
dr catherine key notified via tiger text of low bp
[2025-03-15 18:48] LABS: Reflex Lactate? Lactic Acid Added
[2025-03-15 19:18] LABS: Appearance Urine Clear; Glucose Urine UA Negative (Negative); PH 5.5 (5.0-9.0); Specific Gravity - Urine >= 1.030 (1.005-1.025)
[2025-03-15 19:28] LABS: Cannabinoid Screen Urine Not Detected (Not Detect)
[2025-03-15 20:01] LABS: ~Lactic Acid-LAB USE ONLY 2.2 mmol/L (0.5-2.0)
--- NOTE | 2025-03-15 20:10 | ECG_ITS ---
Test Reason : OVERDOSED Blood Pressure : */* mmHG Vent. Rate : 71 BPM Atrial Rate : 71 BPM P-R Int : 134 ms QRS Dur : 76 ms QT Int : 440 ms P-R-T Axes : 66 87 65 degrees QTcB Int : 478 ms Normal sinus rhythm Normal ECG When compared with ECG of 22-Feb-2025 20:53, Minimal criteria for Anteroseptal infarct are no longer Present Referred By: Madan Grajeda Electronically Signed By: WINNIE HENRY MD
--- NOTE | 2025-03-15 20:54 | PC.NURSE ---
Rectal temp 95.5F. Bare huggers placed.
[2025-03-15 21:40] LABS: Reflex Lactate? 2 Y
[2025-03-15] MEDS: Lactated Ringers 1,000 ML 999 ML IV (22:02)
--- NOTE | 2025-03-15 23:12 | MHC.EDTECH ---
Patient inc therefore patient changed and repositioned
[2025-03-15 23:15] LABS: ~Lactic Acid-LAB USE ONLY 1.5 mmol/L (0.5-2.0)
--- NOTE | 2025-03-15 23:20 | PC.NURSE ---
Rectal temp 97.3F. Pt taken off bare huggers per .
[2025-03-16] VITALS (18 sets, daily range): BP systolic 100–122; BP diastolic 56–82; PULSE 62–76; RESP 11–22; TEMP 36.3–37.2; O2SAT 93–100
--- NOTE | 2025-03-16 08:25 | PC.NURSE ---
PT sleeping no resp difficulties noted. trial off NCO2. Sitter d/c as no indication at this time. Pt has been sleeping for several hrs without agitation
--- NOTE | 2025-03-16 08:34 | PC.NURSE ---
assumed care of pt at 0700. Pt resting in bed quietly, sleeping at this time, respirations even and unlabored, no increased wob/sob noted, pt weaned off O2- maintaining O2 sat >92% on RA. BP cycling q 15 to monitor, HR 60s, nsr on orthopedic mechanic. Pt no longer needs 1:1 sitter- no reports of agitation/erratic behavior overnight. Call kingsley within reach, all needs met at this time.
--- NOTE | 2025-03-16 09:45 | HO.SUDE ---
Attempted to meet with pt. in ED 4 to obtain a SUDE and provide resources/support. Pt resting comfortably and did not awake to voice. Due to pt's incredibly rough night I chose to let her rest. I spoke with her nurse Ene and she informed me that the plan was once pt. awake and alert she will be D/C. T/W asked Ene to messge me when pt. awake enough to meet and I would come back. T/W available as needed. Unable to complete SUDE at this time due to pt's level of alertness/Mental status.
--- NOTE | 2025-03-16 13:02 | PC.NURSE ---
pt was incontinent of a large amount of urine.cleaned and bed changed. She is warm to touch with a rectal temp of 99.*F, cough present. Asking to go home but remains quite drowsy. Offered PO fluids but unable to stay awake
--- NOTE | 2025-03-16 15:12 | HO.SUDE ---
T/W attempted to meet with pt. in [address] with staff interpreter Juan A for [employer] and to provide support and resources. Pt decined to meet stating I want to go home . Pt accepted a folder with resources and reports that she has been given Narcan. T/W available PRN
--- NOTE | 2025-03-16 15:33 | PC.NURSE ---
Pt incontinent of urine- ambulated up oob to bathroom with this RN. Ambulates with steady gait- pt remains drowsy but easily arousable. Recovery met with pt at bedside, pt given resources.
--- NOTE | 2025-03-16 17:11 | PC.NURSE ---
Pt up oob ambulating with steady gait. Pt a/ox3- given personal belongings to change. IV line removed. Pt given d/c instructions. Ambulated out of ED with steady gait.
== END 2025-03-16 17:13 | disposition home or self-care (01) ==
PROVIDERS: Emergency Provider Emergency Medicine
DX: T40.601A Poisoning by unspecified narcotics, accidental (unintentional), initial encounter (principal); R41.0 Disorientation, unspecified; Y92.9 Unspecified place or not applicable; F14.90 Cocaine use, unspecified, uncomplicated; R10.2 Pelvic and perineal pain; I95.9 Hypotension, unspecified; R45.6 Violent behavior; J32.9 Chronic sinusitis, unspecified; R11.0 Nausea; R79.89 Other specified abnormal findings of blood chemistry; Z51.81 Encounter for therapeutic drug level monitoring; Z79.899 Other long term (current) drug therapy
CPT/HCPCS: 36415; 70450; 71045; 76604; 76705; 76775; 80048; 80307; 81003; 82247; 82550; 83605; 84145; 85025; 86140; 87040; 93005; 96361; 96365; 96372; 96375; 99285; J0131; J0696; J1200; J1790; J2250; J3360; J3374; J7120

== ENCOUNTER → 2025-03-15 16:29 | Outpatient (BNV) | payer MEDICAID, SELFPAY | PROVIDERS: Emergency Provider Emergency Medicine; Visit Provider Radiology Diagnostic Radiology | DX: G93.40 Encephalopathy, unspecified (principal); J32.9 Chronic sinusitis, unspecified; A41.9 Sepsis, unspecified organism | CPT/HCPCS: 70450; 71045 ==

== ENCOUNTER → 2025-03-15 20:10 | Outpatient (BNV) | payer MEDICAID, SELFPAY | PROVIDERS: Emergency Provider Emergency Medicine; Visit Provider Internal Medicine Cardiovascular Disease | DX: T50.901A Poisoning by unspecified drugs, medicaments and biological substances, accidental (unintentional), initial encounter (principal) | CPT/HCPCS: 93010 ==

== ENCOUNTER 2025-03-22 14:50 | Emergency (ER) | payer MEDICAID, SELFPAY ==
[2025-03-22 15:04] VITALS: BP 107/61; BP 131/87; PULSE 79; PULSE 87; RESP 9; O2SAT 86; O2SAT 97; BMI 25.4
[2025-03-22 15:10] VITALS: RESP 10; TEMP 36; O2SAT 99
[2025-03-22] MEDS: Naloxone HCl Nasal 4 MG SPRAY NOSTRILALT (15:11)
--- NOTE | 2025-03-22 15:45 | ED_ITS ---
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 Patient was found down unresponsive and it was reported to EMS by bystanders that the patient was using heroin The patient was responding to pain and maintaining airway and therefore did not receive Narcan in the field or via EMS. 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 ? Denies any depression or suicidal ideation Related Data Allergies Allergy/AdvReac Type Severity Reaction Status Date / Time No Known Allergies (No Known Allergy Verified 03/22/25 15:09 Allergies*) Review of Systems 2 Constitutional: Constitutional: Denies chills and Denies fever(s) Eyes: Eyes: Denies blurry vision ENT: Denies vertigo and Denies dizziness Cardiovascular: Cardiovascular: Denies chest pain and Denies dyspnea on exertion Respiratory: Respiratory: Denies cough and Denies dyspnea on exertion Musculoskeletal: Musculoskeletal: Denies back pain Neurologic: Denies vertigo and Denies dizziness [facility] Social History Social History Unable to assess alcohol history related to: Unknown Alcohol intake: unknown Advance Directives: No Advance Directives Information Provided: No Do you have a plan to hurt others: No Plan Physical Exam ED Vital Signs: Vital Signs - 24 hr 03/22/25 16:30 03/22/25 17:29 03/22/25 20:05 Temperature Pulse Rate 80 75 64 Respiratory Rate 14 18 14 Blood Pressure 126/87 109/58 L 111/61 Pulse Oximetry 100 95 95 Oxygen Delivery Method Nasal Cannula Room Air Room Air Oxygen Flow Rate 2 03/22/25 22:08 03/23/25 00:19 03/23/25 09:13 Temperature 98.0 F 98.2 F 98 F Pulse Rate 65 65 80 Respiratory Rate 14 15 Blood Pressure 112/73 121/78 125/79 Pulse Oximetry 94 95 96 Oxygen Delivery Method Room Air Room Air Oxygen Flow Rate 03/23/25 09:28 Temperature 98 F Pulse Rate 80 Respiratory Rate 15 Blood Pressure 125/79 Pulse Oximetry 96 Oxygen Delivery Method Room Air Oxygen Flow Rate BMI result Body Mass Index 25.4 Const Other: The patient is somewhat disheveled appearing but is resting comfortably in no acute distress in his nontoxic appearing General: comfortable, no acute distress, alert and awake Nutritional Appearance: well nourished Orientation/consciousness: patient oriented x3 HENMT Head: Yes normocephalic and Yes atraumatic Eyes Eyelids: Yes eyelids normal Conjunctivae: conjunctivae normal Sclerae: sclerae normal Corneas: corneas normal Pupils: Equal, round and reactive pupils present EOM: EOMs intact bilaterally Neck Neck: Yes full ROM Resp Effort & Inspection: normal respiratory effort, able to speak in complete sentences and not labored Cardio Rate: regular rate Rhythm: regular rhythm GI Inspection: No distended Palpation (GI): Soft to palpation, not firm, nontender, no guarding and not rigid Skin General skin exam: elasticity normal Neuro General: patient oriented x3 Cranial nerves: Yes Equal, round and reactive pupils present and Yes Bilaterally intact EOM present Cognition (Neuro): normal cognition Extrem Other: Moving all extremities well without any obvious deformities Course Reevaluation(s) Reevaluation #1: The patient is off supplemental oxygen. Resting comfortably with stable vital signs. She does awake to verbal stimuli. Time: 18:35 Reevaluation #2: The patient is still somewhat drowsy, I discussed with her she is welcome to stay and speak with the care team but if so she would need to telephone exchange operator due to her substance abuse presentation. She has been medically cleared for discharge if he would prefer to be discharged and she would like to be discharged at this time. She will be fed prior to discharge but again, she does not wish to speak with the care team Time: 18:59 Reevaluation #3: The patient is still somewhat drowsy, she will be changed over and have labs drawn and she will meet with the recovery team. She is not on a section, if she is awake enough to leave she is able to do so Time: 19:24 Additional Reevaluation(s): I Su Granado PA-C have accepted care of the patient and signed out pending labs, and recovery team. The patient is still somnolent, we are just collecting labs, we are getting her changed over. The recovery team we will attempt to meet with her. She has already declined services, if she wants to leave she is free to go, we have no indication to hold her against her will. 21:48 Date: 03/22/25 Provider: DAVID Polanco Patient is opting to leave DC now 10:48 p.m. there was miscommunication with nursing, the patient was not discharged, she is still somnolent. She is still being held for recovery team, she can still leave issue would like to. I will place her under physician obs at this time Time: 22:49 Date: 03/22/25 Provider: DAVID Polanco Patient in physician observation for psychiatric evaluation.? No acute events reported overnight. No current complaints. VS stable.? Patient is in bed search status/pending CARE team evaluation. Will continue to monitor. Medications Administered Discontinued Medications Generic Name Dose Route Start Last Admin Trade Name Freq PRN Reason Stop Dose Admin Naloxone HCl 4 mg 03/22/25 15:09 03/22/25 15:11 Naloxone Hcl Nasal 4 Mg [place] NOSTRILALT 03/22/25 15:10 4 mg ONCE ONE Administration Medical Decision Making Medical Decision Making [facility] Narrative: 54-year-old female presents for evaluation of reported opiate abuse and the patient does admit to using substances. She did respond well to Narcan in the department. Her vital signs are stable. She is answering questions when she feels like it. She is not unresponsive but rather uncooperative. However she is non combative. Plan for observation Differential Diagnosis Differential Diagnoses: The differential diagnosis associated with the presentation includes Substance abuse Syncope Polysubstance abuse Aspiration pneumonitis Lab Data 03/22/25 20:17 03/22/25 20:17 Labs: Lab Results 03/22/25 Range/Units 20:17 WBC 7.9 (4.8-10.8) X10*3/uL RBC 4.57 (4.20-5.50) X10*6/uL Hgb 13.4 (12.0-16.0) g/dl Hct 39.8 (37.0-47.0) % MCV 87.1 (80.0-98.0) fL MCH 29.3 (27.0-33.0) pg MCHC 33.7 (31.0-35.0) g/dl RDW 14.3 (11.0-16.0) % Plt Count 236 (160-400) X10*3/uL MPV 9.5 (9.4-12.3) fL Immature Gran % (Auto) 0.3 (0.0-0.4) % Neut % (Auto) 70.3 (45-73) % Lymph % (Auto) 18.6 L (20-40) % [place] % (Auto) 6.7 (2-11) % Eos % (Auto) 3.2 (0-4) % Baso % (Auto) 0.9 (0-2) % Lymph # (Auto) 1.5 (1.2-4.9) X10*3/uL [place] # (Auto) 0.5 (0.1-1.2) X10*3/uL Eos # (Auto) 0.3 (0.0-0.4) X10*3/uL Baso # (Auto) 0.1 (0.0-0.2) X10*3/uL Abs Immat Gran (auto) 0.02 (0.00-0.03) X10*3/uL Absolute Neuts (auto) 5.6 (2.0-8.3) x10*3/uL Absolute Nucleated RBC 0.000 (0.0-0.012) X10*3/uL Nucleated RBC % (auto) 0.0 (0.0-0.2) /100WBC Sodium 140 (135-145) mmol/L Potassium 3.9 (3.3-5.1) mmol/L Chloride 108 (96-108) mmol/L Carbon Dioxide 25 (22-29) mmol/L Anion Gap 11 L (12-20) BUN 11 (9-16) mg/dL Creatinine 0.65 (0.5-1.4) mg/dL Estim Creat Clear Calc 81.3 Estimated GFR > 60 Random Glucose 132 H (60-115) mg/dL Calcium 8.8 D (8.4-10.2) mg/dL Total Bilirubin 0.5 (0.0-1.0) mg/dL AST 17 (5-31) U/L ALT 14 (0-31) U/L Alkaline Phosphatase 58 (39-117) U/L Total Protein 6.7 (6.5-8.0) g/dL Albumin 3.8 (3.5-5.0) g/dL Ethyl Alcohol < 10 mg/dL Discharge Plan Discharge Clinical Impression: Drug overdose Patient Disposition: Home, Self-Care Instructions: Adult Overdose (ED) Additional Instructions: Opiate use disorder You were seen in our Emergency Department today for treatment of opiate use disorder. You may have been dosed with medication for opiate use disorder (MOUD) in the form of suboxone or methadone. You may experience feeling some withdrawal symptoms and this is normal. The? dose in the Emergency Department is a starting dose and meant to be titrated up once you follow up with a clinic. Please do not feel discouraged, it is a process. The nurse has reviewed with you where to follow up and what information to bring with you, to continue treatment. You also may have been given naloxone (narcan) to take home with you. This medication is used to potentially treat opiate overdose. If you decide you want to stop or cut down on how much you?re using, you can call or walk into our outpatient Addiction Treatment office: [facility] (M-F 9am-5p) [address] [place] [address], [address] [phone] You may have been provided with safer injection?items, please take time to take care of YOU and your health. Use new supplies whenever possible to lessen the chances of infections and other illnesses.? ?If you need more supplies, please go [facility],? [address] [place] [address] OR you can call or text to coordinate delivery of safer supplies. You were also provided a list of several treatment providers in the area.? If you experience any worsening symptoms you cannot control please return to the ED or call 911. Please follow up at your next appointment. Things to look out for are fevers, chest pain, shortness of breath, severe pain, dizziness, fainting or any other concerns. Interventions: ED Discharge Assessment Last Done: 03/23/25 09:28 Discharge Date/Time: 03/23/25 09:29 Print Language: Maltese
[2025-03-22 16:30] VITALS: BP 126/87; PULSE 80; RESP 14; O2SAT 100
[2025-03-22 17:29] VITALS: BP 109/58; PULSE 75; RESP 18; O2SAT 95
--- NOTE | 2025-03-22 19:17 | ECG_ITS ---
Test Reason : OD Blood Pressure : */* mmHG Vent. Rate : 69 BPM Atrial Rate : 69 BPM P-R Int : 132 ms QRS Dur : 70 ms QT Int : 412 ms P-R-T Axes : 64 84 72 degrees QTcB Int : 441 ms Normal sinus rhythm Septal infarct , age undetermined Abnormal ECG When compared with ECG of 15-Mar-2025 20:18, Septal infarct is now Present Referred By: Mateus Agustin Electronically Signed By: Mateus Farmer
[2025-03-22 20:05] VITALS: BP 111/61; PULSE 64; RESP 14; O2SAT 95
[2025-03-22 20:21] LABS: MANUAL DIFF FLAG NO
--- NOTE | 2025-03-22 20:21 | MHC.EDTECH ---
belongings in shelf 2 in [facility]
--- NOTE | 2025-03-22 20:27 | MHC.CARE ---
RAD Team completed [facility] referral for this pt. Will follow up tomorrow.
[2025-03-22 20:40] LABS: Alanine Aminotransferase 14 U/L (0-31); Albumin Level 3.8 g/dL (3.5-5.0); Alkaline Phosphatase 58 U/L (39-117); Anion Gap 11 (12-20); Aspartate Amino Transferase 17 U/L (5-31); Blood Urea Nitrogen 11 mg/dL (9-16); Calcium 8.8 mg/dL (8.4-10.2); Carbon Dioxide 25 mmol/L (22-29); Chloride 108 mmol/L (96-108); Creatinine Clr Calc Pharmacy 81.3; Estimated Glomerular Filt Rate > 60; Potassium 3.9 mmol/L (3.3-5.1); Sodium 140 mmol/L (135-145); Total Protein 6.7 g/dL (6.5-8.0)
[2025-03-22 21:01] LABS: Hematocrit 39.8 % (37.0-47.0); Hemoglobin 13.4 g/dl (12.0-16.0); Imm Gran Abs Auto 0.02 X10*3/uL (0.00-0.03); Imm Gran Pct Auto 0.3 % (0.0-0.4); Lymphocytes Absolute Auto 1.5 X10*3/uL (1.2-4.9); Mean Corpuscular HGB Conc 33.7 g/dl (31.0-35.0); Mean Corpuscular Hemoglobin 29.3 pg (27.0-33.0); Mean Corpuscular Volume 87.1 fL (80.0-98.0); NRBC Abs Auto 0.000 X10*3/uL (0.0-0.012); NRBC Pct Auto 0.0 /100WBC (0.0-0.2); Platelet Count 236 X10*3/uL (160-400); Red Blood Count 4.57 X10*6/uL (4.20-5.50); White Blood Count 7.9 X10*3/uL (4.8-10.8)
[2025-03-22 22:08] VITALS: BP 112/73; PULSE 65; TEMP 36.7; O2SAT 94
[2025-03-23 00:19] VITALS: BP 121/78; PULSE 65; RESP 14; TEMP 36.8; O2SAT 95
[2025-03-23 09:13] VITALS: BP 125/79; PULSE 80; RESP 15; TEMP 36.6; O2SAT 96
--- NOTE | 2025-03-23 09:15 | PC.NURSE ---
This RN assumed care of patient @ 0700 Patient sleeping at beginning of shift. Woke patient to eat breakfast. Patient refused to speak with care team. Patient difficult to get up, Retrieved items from [facility] and was able to get patient to bathroom to get changed.
[2025-03-23 09:28] VITALS: BP 125/79; PULSE 80; RESP 15; TEMP 36.6; O2SAT 96
== END 2025-03-23 09:29 | disposition home or self-care (01) ==
PROVIDERS: Physician Assistant; Emergency Provider Emergency Medicine
DX: T40.1X1A Poisoning by heroin, accidental (unintentional), initial encounter (principal); R40.0 Somnolence; F19.10 Other psychoactive substance abuse, uncomplicated; Y92.9 Unspecified place or not applicable; R09.02 Hypoxemia
CPT/HCPCS: 36415; 80053; 80307; 85025; 93005; 99285; S9485

== ENCOUNTER → 2025-03-22 19:17 | Outpatient (BNV) | payer MEDICAID, SELFPAY | PROVIDERS: Emergency Provider Emergency Medicine; Visit Provider Internal Medicine Cardiovascular Disease | DX: R94.31 Abnormal electrocardiogram [ECG] [EKG] (principal); T40.2X1A Poisoning by other opioids, accidental (unintentional), initial encounter | CPT/HCPCS: 93010 ==

== ENCOUNTER 2025-03-29 12:26 | Emergency (ER) | payer MEDICAID, SELFPAY ==
[2025-03-29 12:39] VITALS: BP 160/100; PULSE 110; O2SAT 97; BMI 27.3
--- NOTE | 2025-03-29 13:17 | ED.OVERDOSE ---
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 ) History of Present Illness ED Provider: MARIELLA GUZMAN Narrative: 54 yo female with known opiate use disorder and visits to our ED for overdose - 03/22/25 seen for same and refused services now here after being found sitting on sidewalk - altered hypoxic no response to IV but woke with IV narcan 1mg. She refuses all services states she has been working hard and this is why it happened. no SI. This is her 5th visit for overdose events since February 11 complaint: accidental overdose Onset (ago): unknown Intent: other How Overdose Was Discovered: other (bystander saw her) Treatments Prior to Arrival: narcan (1mg IV) Related Data Home Medications ?Medication ?Instructions ?Recorded ?Confirmed No Known Home Meds 03/29/25 03/29/25 Allergies Allergy/AdvReac Type Severity Reaction Status Date / Time No Known Allergies (No Known Allergy Verified 03/29/25 12:42 Allergies*) Review of Systems Review of Systems: Constitutional : No Fever, No Chills, No Fatigue ENT/Mouth : No sore throat, No Rhinorrhea Eyes: No Eye Pain, No Swelling, No Redness Cardiovascular : No Chest Pain, No SOB, No Dyspnea on Exertion Respiratory : No Cough, No Sputum Gastrointestinal : No Nausea, No Vomiting, No Diarrhea, No abdominal Pain Genitourinary : No Dysuria, No Urinary Frequency, No Hematuria, Musculoskeletal : No joint pain, No Myalgias, No Joint Swelling Skin : No Skin Lesions, No rash Neuro : No Weakness, No Numbness, No Dizziness, no Headache All other systems reviewed and are negative [facility] Past Medical History Attestation statement: The following information was validated with the patient. Source: old records reviewed Social History Social History Unable to assess alcohol history related to: Unknown Alcohol intake: current Smoked in Last 30 Days: No Use of substances other than those prescribed or required for medical reasons: No Advance Directives: No Advance Directives Information Provided: Yes Do you have a plan to hurt others: No Plan Patient : No Physical Exam Vital Signs: Vital Signs: Last Vital Signs Temp 97.6 F 03/29/25 16:45 Pulse 63 03/29/25 16:45 Resp 16 03/29/25 16:45 BP 122/75 03/29/25 16:45 Pulse Ox 95 03/29/25 16:45 O2 Del Method Room Air 03/29/25 16:45 BMI result Body Mass Index 27.3 Appearance: Alert. Oriented X3. No acute distress. angry on arrival does not want eval or SUDE - demanding water, pulled L hand IV Eyes: Pupils equal, round and reactive to light. ENT: Pharynx normal. Neck: Normal inspection. Neck supple. CVS: Normal heart rate and rhythm. Pulses normal. Respiratory: No respiratory distress. Breath sounds normal. Abdomen: Soft and nontender. Skin: Skin warm and dry. Normal skin color. Normal skin turgor. Extremities: No lower extremity edema. No calf ttp Neuro: Oriented X 3. No motor deficit. No sensory deficit. CN2-12 intact Course Course Course Narrative: daughter is here and states she wants to section 35 the patient this is 2 overdose in 1 week. pending clinical sobriety and waking up physician observation started at 336pm Reevaluation(s) Reevaluation #1: I tried to call phone number on chart but it is out of service. unable to reach family at this time. 453pm and patient is threatening to leave I cannot section 12 her Reevaluation #2: physician observation ended at 515pm I do not feel we can section 12 her she has no SI/HI. she is clinically sober she refuses all addiction help. I cannot reach her family Medications Administered Discontinued Medications Generic Name Dose Route Start Last Admin Trade Name Kim PRN Reason Stop Dose Admin Naloxone HCl 8 mg 03/29/25 12:48 03/29/25 15:49 Naloxone Hcl Nasal Take Home 4 Mg [place] NOSTRILALT 03/29/25 12:49 Not Given ONCE ONE Medical Decision Making Medical Decision Making MDM Narrative: 54 yo female with PMH of opiate use disorder who was found sitting down no trauma - she states no SI, does not want detox. She is adamant that this didn't happen. Will observe, she did try for SUDE eval but declines services. Differential Diagnosis Differential Diagnoses: The differential diagnosis associated with the presentation includes overdose Admission/Observation Consideration of admission/observation: Escalation of care including admission/observation considered refuses help daughter is going to the courts for possible S35, CARE team Ruth aware and I also let our charge preparation technician aware of possible plan. Consult Healthcare Provider Management of the patient was discussed with: Behavioral Health Provider Lab Data 03/29/25 15:59 03/29/25 15:59 Labs: Lab Results 03/29/25 Range/Units 15:59 WBC 8.5 (4.8-10.8) X10*3/uL RBC 4.65 (4.20-5.50) X10*6/uL Hgb 13.9 (12.0-16.0) g/dl Hct 41.1 (37.0-47.0) % MCV 88.4 (80.0-98.0) fL MCH 29.9 (27.0-33.0) pg MCHC 33.8 (31.0-35.0) g/dl RDW 14.2 (11.0-16.0) % Plt Count 242 (160-400) X10*3/uL MPV 9.2 L (9.4-12.3) fL Immature Gran % (Auto) 0.2 (0.0-0.4) % Neut % (Auto) 68.5 (45-73) % Lymph % (Auto) 19.4 L (20-40) % [place] % (Auto) 7.7 (2-11) % Eos % (Auto) 3.3 (0-4) % Baso % (Auto) 0.9 (0-2) % Lymph # (Auto) 1.7 (1.2-4.9) X10*3/uL [place] # (Auto) 0.7 (0.1-1.2) X10*3/uL Eos # (Auto) 0.3 (0.0-0.4) X10*3/uL Baso # (Auto) 0.1 (0.0-0.2) X10*3/uL Abs Immat Gran (auto) 0.02 (0.00-0.03) X10*3/uL Absolute Neuts (auto) 5.8 (2.0-8.3) x10*3/uL Absolute Nucleated RBC 0.000 (0.0-0.012) X10*3/uL Nucleated RBC % (auto) 0.0 (0.0-0.2) /100WBC Sodium 139 (135-145) mmol/L Potassium 4.1 (3.3-5.1) mmol/L Chloride 106 (96-108) mmol/L Carbon Dioxide 26 (22-29) mmol/L Anion Gap 11 L (12-20) BUN 14 (9-16) mg/dL Creatinine 0.66 (0.5-1.4) mg/dL Estim Creat Clear Calc 82.9 Estimated GFR > 60 Random Glucose 91 (60-115) mg/dL Calcium 9.0 (8.4-10.2) mg/dL Ethyl Alcohol < 10 mg/dL Independent Historian Clinical information obtained from an independent historian. History obtained from or confirmed by: EMS External Record Review External record reviewed: Outpatient record Discharge Plan Discharge Clinical Impression: Drug overdose Qualifiers: Encounter type: initial encounter Injury intent: accidental or unintentional Qualified Code(s): T50.901A - Poisoning by unspecified drugs, medicaments and biological substances, accidental (unintentional), initial encounter Patient Disposition: Home, Self-Care Instructions: Adult Overdose (ED) Additional Instructions: You were seen in our Emergency Department today for treatment of a behavioral health issue. It is important after your visit that you follow up with either your behavioral health provider or a primary care doctor within 7 days.? If you have trouble finding a therapist you can reach out to [address] [phone] The National Suicide and Crisis Lifeline can be reached 7 days a week 24 hours a day.? Call 988 to speak with someone.? Return for any worsening symptoms or concerns such as thoughts of self harm or harm to others. Please call 911 if you feel your mental health is worsening.? we tried to keep you for detox but you refused. you can return at any time Prescriptions: No Action No Known Home Meds Print Language: Uzbek
--- OUTSIDE RECORDS SUMMARY | 2025-03-29 13:23 | XMS_ITS | Clinical Summary ---
Author Organization [employer] Address [address] [facility] [address] [place] [address] Care Team Providers Care Storage Engineer Name Role Phone Unavailable Primary Care Provider [...] - 2023-2 5 season) 2024 Influenza Vaccine (#1) 2025 7, 05/29/2014, 09/30/2012 RSV Patients and Patients Aged [...] EDT) ETHANOL (MG/DL) IN SER/PLAS 13 mg/dL [facility] Comment:Serum/plasma ethanol results are to be used formedical/treatment purposes only. 02/22/2025 9:13 PM EDT 02/22/2025 9:16 PM EDT us Generic External Data Provider LAB BLOOD ORDERAB LES Final Result [facility] [address] [place] [phone] * Comprehensive Metabolic Panel (02/22/2025 9:13 PM EDT) Sodium 139 135 - 145 mmol/L [facility] Potassium 4.3 3.3 - 5.1 mmol/L [facility] Comment:Mild Hemolysis.Inter pret result with caution Chloride 106 96 - 108 mmol/L [facility] Carbon Dioxide 24 22 - 29 mmol/L [facility] Anion Gap 13 12 - 20 [facility] Urea Nitrogen (BUN) 10 9 - 16 mg/dL [facility] Creatinine, Serum 0.65 0.5 - 1.4 mg/dL [facility] Creatinine Clr Calc Pharmacy 90.4 [facility] Comment:Provided height and weight: 167.64 cm,56.6 kg.eGFR (calculated from the MDRD study equation) and eCrCl(calculated from the Cockcroft-Gault equation) are based ondifferent parameters and may not yield comparable results.If eCrCl result is absurd, please check patient'sheight/weight. Estimated Glomerular Filt Rate >60 [facility] Comment:Chronic Kidney Disea se: Estimated GFR < 60 mL/min/[id number] Kidney Disease: Estimated GFR < 15 mL/min/1.73m2 Glucose 108 60 - 115 mg/dL [facility] Calcium 9.0 8.4 - 10.2 mg/dL [facility] Bilirubin, Total 0.3 0.0 - 1.0 mg/dL [facility] Aspartate Amino Transferase 31 5 - 31 U/L [facility] Comment:Mild Hemolysis.Inter pret result with caution Alanine Aminotransferase 14 0 - 31 U/L [facility] Total Protein 7.1 6.5 - 8.0 g/dL [facility] Comment:Mild Hemolysis.Inter pret result with caution Albumin Level 3.9 3.5 - 5.0 g/dL [facility] Alkaline Phosphatase 57 39 - 117 U/L [facility] 02/22/2025 9:13 PM EDT 02/22/2025 9:16 PM EDT us Generic External Data Provider LAB BLOOD ORDERAB LES Final Result [facility] [address] [facility] [place] [id number] [phone] from Last 3 Months Insurance [facility] C3
--- NOTE | 2025-03-29 14:05 | MHC.CARE ---
T/W spoke with Pt with the assistance of a Omani medical language specialist. Pt denied that today's admission to the ED was secondary to an opiate overdose. Pt did not remember how she got to the ED. Pt became tearful when explained that she was found hypoxic and required Narcan. Pt stated that she has been speaking with her daughter about getting into a program. Pt was receptive to taking information home with her to review with her daughter. Pt was provided with a Pt resource guide, information on [facility], and other services.
[2025-03-29 15:13] VITALS: BP 112/75; PULSE 72; RESP 12; O2SAT 96
--- NOTE | 2025-03-29 15:57 | PC.NURSE ---
Pt expressing displeasure with being brought over to the pod, stating she would like to go home. This Rn explained that she cannot yet go home and we are waiting to get her into a program
--- NOTE | 2025-03-29 16:05 | PC.NURSE ---
Pt reports that she takes no medications
[2025-03-29 16:06] LABS: MANUAL DIFF FLAG NO
[2025-03-29 16:08] LABS: Hematocrit 41.1 % (37.0-47.0); Hemoglobin 13.9 g/dl (12.0-16.0); Imm Gran Abs Auto 0.02 X10*3/uL (0.00-0.03); Imm Gran Pct Auto 0.2 % (0.0-0.4); Lymphocytes Absolute Auto 1.7 X10*3/uL (1.2-4.9); Mean Corpuscular HGB Conc 33.8 g/dl (31.0-35.0); Mean Corpuscular Hemoglobin 29.9 pg (27.0-33.0); Mean Corpuscular Volume 88.4 fL (80.0-98.0); NRBC Abs Auto 0.000 X10*3/uL (0.0-0.012); NRBC Pct Auto 0.0 /100WBC (0.0-0.2); Platelet Count 242 X10*3/uL (160-400); Red Blood Count 4.65 X10*6/uL (4.20-5.50); White Blood Count 8.5 X10*3/uL (4.8-10.8)
[2025-03-29 16:19] LABS: Anion Gap 11 (12-20); Blood Urea Nitrogen 14 mg/dL (9-16); Calcium 9.0 mg/dL (8.4-10.2); Carbon Dioxide 26 mmol/L (22-29); Chloride 106 mmol/L (96-108); Creatinine Clr Calc Pharmacy 82.9; Estimated Glomerular Filt Rate > 60; Potassium 4.1 mmol/L (3.3-5.1); Sodium 139 mmol/L (135-145)
[2025-03-29 16:45] VITALS: BP 122/75; PULSE 63; RESP 16; TEMP 36.4; O2SAT 95
--- NOTE | 2025-03-29 17:57 | PC.NURSE ---
Pt became further upset after requesting honey buns and cakes and staff told her we do not have any. Pt demanding that staff go find her something sweet . This Rn and OLESYA Orellana provided patient with two ice creams to which patient stated well where is my honey bun and cake, this isnt fair you are starving me by giving me food I don't like . This RN once again educated patient on food that is available here and also offered to call the kitchen to ask for a cookie or cake with dinner. Pt again became upset, claiming staff were starving her because she could not have cake. Pt was offered sandwiches, crackers, juice, pudding, jello and cheese sticks all of which she declined. Pt then demanded an automotive parts interpreter (after having a full conversation in croatian with this RN) One automotive parts interpreter arrived to pod, pt told the automotive parts interpreter that she was being starved and that no one will get her honey buns and cake. This RN via the automotive parts interpreter again explained to patient that honey buns and cake are not available but other items can be offered. Pt, unsatisfied with that answer, threatened to throw ice cream at this RN. Pt demanding to be discharged. After conversation with provider, it was determined that pt will not be held and be discharged Pt was provided with Narcan on discharge and escorted from [facility] out the ambulance bay
[2025-03-29 18:07] VITALS: BP 122/75; PULSE 63; RESP 16; TEMP 36.4; O2SAT 95
== END 2025-03-29 18:09 | disposition home or self-care (01) ==
PROVIDERS: Emergency Provider Emergency Medicine
DX: T50.901A Poisoning by unspecified drugs, medicaments and biological substances, accidental (unintentional), initial encounter (principal); Y92.9 Unspecified place or not applicable; R09.02 Hypoxemia; Z79.899 Other long term (current) drug therapy; Z51.81 Encounter for therapeutic drug level monitoring
CPT/HCPCS: 36415; 80048; 80307; 85025; 99284; 99285

== ENCOUNTER 2025-04-14 16:36 | Emergency (ER) | payer MEDICAID, SELFPAY ==
[2025-04-14] VITALS (7 sets, daily range): BP systolic 102–130; BP diastolic 69–90; PULSE 75–98; RESP 10–14; TEMP 2.4–36.5; O2SAT 79–97; BMI 23.9
--- NOTE | 2025-04-14 | ECG_ITS ---
Test Reason : UNRESPONSIVE Blood Pressure : */* mmHG Vent. Rate : 88 BPM Atrial Rate : 88 BPM P-R Int : 128 ms QRS Dur : 70 ms QT Int : 380 ms P-R-T Axes : 48 57 47 degrees QTcB Int : 459 ms Normal sinus rhythm Normal ECG When compared with ECG of 22-Mar-2025 19:58, Criteria for Septal infarct are no longer Present Referred By: Generic ED Physician Electronically Signed By: WINNIE HENRY MD
--- NOTE | 2025-04-14 17:06 | ED.OVERDOSE ---
HPI - Overdose General Chief Complaint: Altered Mental Status Stated Complaint: Found Unconscious, found crack on her Time Seen by Provider: 04/14/25 16:56 Source: EMS Mode of arrival: EMS Limitations: no limitations History of Present Illness ED Provider: HPI Narrative: Patient's history of substance abuse was found unresponsive on the sidewalk police found crack next to her . After arrival patient noted to be very sleepy and lethargic became apneic desaturating to 80s no Narcan was given in the field Related Data Home Medications ?Medication ?Instructions ?Recorded ?Confirmed No Known Home Meds 03/29/25 03/29/25 Allergies Allergy/AdvReac Type Severity Reaction Status Date / Time No Known Allergies (No Known Allergy Verified 04/14/25 17:16 Allergies*) Review of Systems Review of Systems: Yes all other systems are reviewed and are negative [facility] Social History Social History Unable to assess alcohol history related to: Refusing to respond Alcohol intake: current Use of substances other than those prescribed or required for medical reasons: Refusing to respond Substance Use Type: Crack/Cocaine, Former Substance User and IV Drugs Substance Use Frequency Other:: pt states I only do what I buy and will not elaborate Advance Directives: No Advance Directives Information Provided: No Do you have a plan to hurt others: No Plan Physical Exam Vital Signs: Vital Signs: Last Vital Signs Temp 97.5 F 04/15/25 00:00 Pulse 73 04/15/25 00:00 Resp 14 04/15/25 00:00 BP 114/72 04/15/25 00:00 Pulse Ox 92 04/15/25 00:00 O2 Del Method Room Air 04/15/25 00:00 BMI result Body Mass Index 23.9 Appearance: Lethargic falling sleep in between. No acute distress. Eyes: no pallor or icterus ENT: Pharynx normal Oral Mucosa moist tympanic membrane intact no erythema, Neck: Normal inspection. Neck supple. CVS: Normal heart rate and rhythm. Pulses normal. Respiratory: No respiratory distress. Equal air entry bilateral, no wheezing/rales/rhonchi Abd: soft, not tender Skin: Skin warm and dry. Normal skin color. Normal skin turgor. Extremities: No lower extremity edema, no calf tenderness IVDA track aj++ Neuro: Lethargic Medications Administered Discontinued Medications Generic Name Dose Route Start Last Admin Trade Name Kim PRN Reason Stop Dose Admin Naloxone HCl 4 mg 04/14/25 17:17 04/14/25 17:18 Naloxone Hcl Nasal 4 Mg [place] NOSTRILALT 04/14/25 17:18 4 mg ONCE ONE Administration Medical Decision Making Medical Decision Making [facility] Narrative: Patient's polysubstance abuse urine positive for opiates fentanyl benzos and cocaine required Narcan saturating more than 95% at this time will discharge patient home patient has refused to go for detox Lab Data [facility] Lab Attestation statement: I reviewed the patient's lab results. 04/14/25 17:41 04/14/25 17:41 Labs: Lab Results 04/14/25 Range/Units 17:41 WBC 8.7 (4.8-10.8) X10*3/uL RBC 4.60 (4.20-5.50) X10*6/uL Hgb 13.7 (12.0-16.0) g/dl Hct 40.7 (37.0-47.0) % MCV 88.5 (80.0-98.0) fL MCH 29.8 (27.0-33.0) pg MCHC 33.7 (31.0-35.0) g/dl RDW 14.3 (11.0-16.0) % Plt Count 206 (160-400) X10*3/uL MPV 9.0 L (9.4-12.3) fL Immature Gran % (Auto) 0.1 (0.0-0.4) % Neut % (Auto) 60.8 (45-73) % Lymph % (Auto) 20.5 (20-40) % [place] % (Auto) 10.0 (2-11) % Eos % (Auto) 7.6 H (0-4) % Baso % (Auto) 1.0 (0-2) % Lymph # (Auto) 1.8 (1.2-4.9) X10*3/uL [place] # (Auto) 0.9 (0.1-1.2) X10*3/uL Eos # (Auto) 0.7 H (0.0-0.4) X10*3/uL Baso # (Auto) 0.1 (0.0-0.2) X10*3/uL Abs Immat Gran (auto) 0.01 (0.00-0.03) X10*3/uL Absolute Neuts (auto) 5.3 (2.0-8.3) x10*3/uL Absolute Nucleated RBC 0.000 (0.0-0.012) X10*3/uL Nucleated RBC % (auto) 0.0 (0.0-0.2) /100WBC Sodium 141 (135-145) mmol/L Potassium 4.4 (3.3-5.1) mmol/L Chloride 106 (96-108) mmol/L Carbon Dioxide 28 (22-29) mmol/L Anion Gap 11 L (12-20) BUN 15 (9-16) mg/dL Creatinine 0.67 (0.5-1.4) mg/dL Estim Creat Clear Calc 80.3 Estimated GFR > 60 Random Glucose 183 H (60-115) mg/dL Calcium 9.8 D (8.4-10.2) mg/dL Salicylates < 5.0 L (15-30) mg/dL Acetaminophen < 3 (<30) mcg/mL Ethyl Alcohol < 10 mg/dL Discharge Plan Discharge Clinical Impression: Polysubstance abuse Patient Disposition: Home, Self-Care Instructions: Polysubstance Use Disorder (ED) Additional Instructions: Stop using drugs Follow up with detoxOverdose You were seen in our Emergency Department for an overdose today. You received narcan in order to reverse the effects of overdose. Narcan only lasts about 45 min to 1 hour in the system. You may have been given narcan to take home with you today, please keep it near you if you are going to use again, so others can use it if needed.? The number one risk for fatal overdose is using alone? [employer] is a / hotline where you can be on the phone with someone while you use, and they can call for help if they suspect an overdose: [phone] Things to look out for when you leave include severe vomiting or diarrhea, headaches, muscle cramps, fever, coughing, chest pain, or if you feel so short of breath you cannot walk to the bathroom. Please seek care and return any time for worsening symptoms.? You may have been provided with safer injection?items, please take time to take care of YOU and your health. Use new supplies whenever possible to lessen the chances of infections and other illnesses.? If you need more supplies, please go [facility],? [address] [place] [address] OR you can call or text to coordinate delivery of safer supplies. If you decide you want to stop or cut down on how much you?re using, please call the numbers on the list provided to you or you can come to our outpatient Addiction Treatment office [facility] (M-F 9am-5p) [address] [place] [address], [facility] [address] [place], [place]. [phone] Prescriptions: No Action No Known Home Meds Print Language: Yoruba
[2025-04-14] MEDS: Naloxone HCl Nasal 4 MG SPRAY NOSTRILALT (17:18)
[2025-04-14 17:45] LABS: MANUAL DIFF FLAG NO
[2025-04-14 17:46] LABS: Hematocrit 40.7 % (37.0-47.0); Hemoglobin 13.7 g/dl (12.0-16.0); Imm Gran Abs Auto 0.01 X10*3/uL (0.00-0.03); Imm Gran Pct Auto 0.1 % (0.0-0.4); Lymphocytes Absolute Auto 1.8 X10*3/uL (1.2-4.9); Mean Corpuscular HGB Conc 33.7 g/dl (31.0-35.0); Mean Corpuscular Hemoglobin 29.8 pg (27.0-33.0); Mean Corpuscular Volume 88.5 fL (80.0-98.0); NRBC Abs Auto 0.000 X10*3/uL (0.0-0.012); NRBC Pct Auto 0.0 /100WBC (0.0-0.2); Platelet Count 206 X10*3/uL (160-400); Red Blood Count 4.60 X10*6/uL (4.20-5.50); White Blood Count 8.7 X10*3/uL (4.8-10.8)
[2025-04-14 18:03] LABS: Acetaminophen LAB < 3 mcg/mL (<30); Anion Gap 11 (12-20); Blood Urea Nitrogen 15 mg/dL (9-16); Calcium 9.8 mg/dL (8.4-10.2); Carbon Dioxide 28 mmol/L (22-29); Chloride 106 mmol/L (96-108); Creatinine Clr Calc Pharmacy 80.3; Estimated Glomerular Filt Rate > 60; Potassium 4.4 mmol/L (3.3-5.1); Salicylate < 5.0 mg/dL (15-30); Sodium 141 mmol/L (135-145)
[2025-04-15] VITALS: BP 114/72; PULSE 73; RESP 14; TEMP 36.4; O2SAT 92
--- NOTE | 2025-04-15 00:04 | PC.NURSE ---
This typewriter tester assumed care of this Pt at 2300. Pt appears to be sleeping, equal, non labored respirations. Awakens to tactile stimulation.
[2025-04-15 03:27] VITALS: BP 113/72; PULSE 70; RESP 16; TEMP 36.6; O2SAT 97
[2025-04-15 04:28] VITALS: BP 113/72; PULSE 70; RESP 16; TEMP 36.6; O2SAT 97
== END 2025-04-15 12:06 | disposition home or self-care (01) ==
PROVIDERS: Emergency Provider Internal Medicine
DX: F19.10 Other psychoactive substance abuse, uncomplicated (principal); R41.82 Altered mental status, unspecified
CPT/HCPCS: 36415; 80048; 80143; 80179; 80307; 85025; 93005; 99284; 99285

== ENCOUNTER → 2025-04-14 17:22 | Outpatient (BNV) | payer MEDICAID, SELFPAY | PROVIDERS: Emergency Provider Internal Medicine; Visit Provider Internal Medicine Cardiovascular Disease | DX: R46.4 Slowness and poor responsiveness (principal) | CPT/HCPCS: 93010 ==

== ENCOUNTER 2025-04-21 12:20 | Emergency (ER) | payer MEDICAID, SELFPAY ==
[2025-04-21 12:32] VITALS: BMI 22.0
--- NOTE | 2025-04-21 12:35 | MHC.EDTECH ---
pt refusing microsoft exchange architect, assisted by security. pt also refusing vitals, uncoop with all care amando
--- NOTE | 2025-04-21 12:37 | PC.NURSE ---
Pt arrives to ED via EMS for OD in community. Pt given 8mg Narcan by PD prior to EMS arrival. EMS reports Pt A&Ox3 on arrival however refusing all care/assessment. EMS reports RR 18 of GCS of 15 during transport. EMS also reports Pt made vague SI/HI statements during transport. Upon arrival to ED, Pt is uncooperative and combative. Pt refuses to leave EMS stretcher, then refuses private branch exchange operator process. Pt attempts to bite staff. Security present for private branch exchange operator and security searches Pts belongings--once search completed, belongings will be stored until Pts d/c. Pt refuses VS assessment from nursing staff Pt is currently sleeping on stretcher. (+) rise and fall of chest observed and NAD noted. Awaiting ED provider.
--- NOTE | 2025-04-21 13:55 | ED.OVERDOSE ---
HPI - Overdose General Chief Complaint: Overdose Stated Complaint: OD,REFUSING VITALS,COOP PER EMS Time Seen by Provider: 04/21/25 12:47 Source: EMS and police Mode of arrival: EMS History of Present Illness ED Provider: Selam GZUMAN Narrative: 55-year-old female who arrives via EMS as an accidental overdose, she received 8 mg of Narcan prior to EMS arrival, patient is refusing all lab work and vital signs, states she just wants to go to sleep, there were some reports that patient made vague SI/HI statements. complaint: accidental overdose Related Data Home Medications ?Medication ?Instructions ?Recorded ?Confirmed No Known Home Meds 03/29/25 03/29/25 Allergies Allergy/AdvReac Type Severity Reaction Status Date / Time No Known Allergies (No Known Allergy Verified 04/21/25 12:37 Allergies*) Review of Systems Review of Systems: Pertinent positives and negatives as stated in the HPI PMFSH Past Medical History Source: nursing notes reviewed Social History Social History Unable to assess alcohol history related to: Refusing to respond Alcohol intake: current Substance Use Type: Crack/Cocaine, Former Substance User and IV Drugs Advance Directives: No Advance Directives Information Provided: No Do you have a plan to hurt others: Vague Physical Exam Exam: Exam: VITAL SIGNS: Reviewed. GENERAL: Well developed, well nourished, in no acute distress. HEAD: Normocephalic/atraumatic EYES: PERRLA, EOMI EARS: Ext canals without abnormality NOSE: Nares patent bilateral OROPHARYNX: no oral lesions noted, posterior pharynx clear NECK: Supple, no adenopathy LUNGS: Normal breath sounds. No adventitious sounds or accessory muscle use. CARDIOVASCULAR: Regular rate and rhythm without noted murmurs ABDOMEN: Soft, non-tender, non-distended with bowel sounds. MUSCULOSKELETAL: No tenderness, deformities, or effusions noted on gross inspection. EXTREMITIES: No cyanosis, clubbing or edema. SKIN: Inspection of the skin reveals no rashes NEUROLOGIC: GCS-12 Vital Signs: Vital Signs: Last Vital Signs Temp 97.1 F 04/22/25 04:34 Pulse 57 04/22/25 04:34 Resp 16 04/21/25 21:39 BP 115/80 08/10/25 04:34 Pulse Ox 95 04/22/25 04:34 O2 Del Method Room Air 04/22/25 04:34 BMI result Body Mass Index 22.0 Course Reevaluation(s) Reevaluation #1: 10:16 AM a.m. 04/22/2025 Dr. Khan Patient was signed out to me at 07:[address] Kimball, plan was metabolized to freedom. Patient presented with overdose she was given Narcan prior to the arrival. She denies SI HI to me she does not want any help with detox. At this time she is walking around eating and drinking she refused blood work Ed vitals stable anticipate discharge Time: 10:17 Medical Decision Making Medical Decision Making MDM Narrative: 55-year-old female with known polysubstance use disorder, no other evidence of traumatic injuries, received 8 mg of Narcan and will be placed under observation until metabolically cleared of substances. Patient placed in physician observation because the patient needed more time for clearance of substances. At the time observation was started the patient's vital signs were stable, patient is alert and oriented but slightly agitated, neuro: Nonfocal, CV RRR, lungs clear. Will evaluate for SI/HI once patient is more awake. 1621: Patient is still very sleepy, lungs are clear, respiratory rate is easy and unlabored. She will remain in physician observation. Differential Diagnosis Differential Diagnoses: The differential diagnosis associated with the presentation includes See above Admission/Observation Consideration of admission/observation: Escalation of care including admission/observation considered See above Social Determinants Patient?s care significantly limited by Social Determinants of Health including: Alcoholism and drug addiction in family Discharge Plan Discharge Clinical Impression: Drug overdose Patient Disposition: Home, Self-Care Instructions: Adult Overdose (ED) Prescriptions: No Action No Known Home Meds Print Language: Romansh
[2025-04-21 18:04] VITALS: BP 104/58; PULSE 58; RESP 12; TEMP 36.7; O2SAT 96
[2025-04-21 21:39] VITALS: BP 107/68; PULSE 60; RESP 16; TEMP 36.2; O2SAT 95
[2025-04-22 04:34] VITALS: BP 115/80; PULSE 57; TEMP 36.2; O2SAT 95
--- NOTE | 2025-04-22 10:15 | PC.NURSE ---
Pt daughter Jalyn called and alerted that the pt was being DC and was requesting a ride home. Pt daughter verbalized she would try and figure something out. primary Rn aware.
[2025-04-22] MEDS: Naloxone HCl Nasal TAKE HOME 4 MG SPRAY 8 MG NOSTRILALT (10:40)
--- NOTE | 2025-04-22 10:40 | PC.NURSE ---
narcan take home kit provided to patient with d/c instructions
[2025-04-22 10:44] VITALS: BP 136/76; PULSE 87; RESP 18; TEMP -17.7; TEMP 0; O2SAT 97
== END 2025-04-22 11:00 | disposition home or self-care (01) ==
PROVIDERS: Emergency Provider Student in an Organized Health Care Education/Training Program
DX: T50.901A Poisoning by unspecified drugs, medicaments and biological substances, accidental (unintentional), initial encounter (principal); F19.10 Other psychoactive substance abuse, uncomplicated; Y92.9 Unspecified place or not applicable
CPT/HCPCS: 99284; 99285

== ENCOUNTER 2025-04-25 18:01 | Emergency (ER) | payer MEDICAID, SELFPAY ==
[2025-04-25 18:09] VITALS: BP 123/77; BP 131/88; PULSE 67; PULSE 73; RESP 18; TEMP 37.4; O2SAT 100; O2SAT 97; BMI 22.6
[2025-04-25 18:16] VITALS: BP 123/77; PULSE 73; RESP 18; TEMP 37.4; O2SAT 97
--- NOTE | 2025-04-25 18:32 | PC.NURSE ---
patient changed over with security and belongings placed in hina port
--- NOTE | 2025-04-25 20:57 | ED.OVERDOSE ---
HPI - Overdose General Chief Complaint: Overdose Stated Complaint: OD, 12MG NARCAN GIVEN, AWAKE, VOMITING Time Seen by Provider: 04/25/25 20:24 Source: EMS Mode of arrival: EMS Limitations: altered mental status History of Present Illness ED Provider: HPI Narrative: Patient's history of opiate abuse been here previously with U tox positive for opiates and fentanyl and cocaine was found semi-responsive in his side of the road was given Narcan 3 times total 12 mg patient has responded awake vomiting post Narcan saturating 99% at room air Related Data Home Medications ?Medication ?Instructions ?Recorded ?Confirmed No Known Home Meds 03/29/25 03/29/25 Allergies Allergy/AdvReac Type Severity Reaction Status Date / Time No Known Allergies (No Known Allergy Verified 04/25/25 18:11 Allergies*) Review of Systems Review of Systems: Yes Unobtainable due to mental status [facility] Social History Social History Unable to assess alcohol history related to: Refusing to respond Alcohol intake: current Smoked in Last 30 Days: No Use of substances other than those prescribed or required for medical reasons: No Substance Use Type: Crack/Cocaine, Former Substance User and IV Drugs Advance Directives: No Advance Directives Information Provided: No Do you have a plan to hurt others: No Plan Patient : No Physical Exam Vital Signs: Vital Signs: Last Vital Signs Temp 98.3 F 04/26/25 06:14 Pulse 43 L 04/26/25 06:14 Resp 22 H 04/26/25 06:14 BP 113/63 04/26/25 06:14 Pulse Ox 100 04/26/25 06:14 O2 Del Method Room Air 04/26/25 06:14 BMI result Body Mass Index 22.6 Appearance: Lethargic No acute distress. Eyes: Pupils 2 mm reacting to light ENT: Pharynx normal. Oral Mucosa moist Neck: Normal inspection. Neck supple. CVS: Normal heart rate and rhythm. Pulses normal. Respiratory: No respiratory distress. Equal air entry bilateral, no wheezing/rales/rhonchi Abdomen: Soft and nontender. Bowel sounds are present, no mass palpable, no CVA tenderness Skin: Skin warm and dry. Normal skin color. Normal skin turgor. Extremities: No lower extremity edema. No calf tenderness Neuro: Semi responsive to painful stream moving all extremity Medications Administered Discontinued Medications Generic Name Dose Route Start Last Admin Trade Name Kim PRN Reason Stop Dose Admin Ondansetron HCl 4 mg 04/25/25 18:43 04/25/25 18:46 Ondansetron Odt 4 Mg Tab.Elvin GONZALES 04/25/25 18:44 4 mg ONCE ONE Administration Medical Decision Making Medical Decision Making [facility] Narrative: Patient's polysubstance abuse admit to using cocaine and heroin sleeping with stable vitals will re-evaluate once sober Brian Doyle MD 04/26/25 0151 patient is placed on physician observation till get sober At this time, 06:58, patient is awake, alert and oriented x3, no acute distress, ambulatory without assistance. I was informed that the patient did not want to wait for paperwork and did not want to wait for take home Narcan. Patient asked to be discharged as soon as possible. Differential Diagnosis Differential Diagnoses: The differential diagnosis associated with the presentation includes Discharge Plan Discharge Clinical Impression: Polysubstance abuse Patient Disposition: Home, Self-Care Instructions: Polysubstance Use Disorder (ED) Additional Instructions: Please follow-up with your primary care physician tomorrow. If you have any worsening or new symptoms, please return to the emergency room or call 911 Prescriptions: No Action No Known Home Meds Print Language: Kiswahili
--- NOTE | 2025-04-25 21:00 | PC.NURSE ---
at bedside. no new orders at this time.
[2025-04-25 23:48] VITALS: BP 106/66; PULSE 59; RESP 19; TEMP 37; O2SAT 97
[2025-04-26 01:59] VITALS: BP 104/69; PULSE 57; RESP 24; TEMP 37.1; O2SAT 98
[2025-04-26 04:27] VITALS: BP 103/65; PULSE 49; RESP 24; TEMP 36.9; O2SAT 99
--- NOTE | 2025-04-26 05:51 | PC.NURSE ---
Patient rested well all night, RR even and unlabored throughout the entire night. Pt was changed twice due to incontinence. Patient arousable to name, responding to questions.
[2025-04-26 06:14] VITALS: BP 113/63; PULSE 43; RESP 22; TEMP 36.8; O2SAT 100
--- NOTE | 2025-04-26 07:00 | PC.NURSE ---
PAtient awake and alert, requesting discharge and unwilling to wait for paperwork. Patient ambulated with a steady gait independently. Patient did not want to wait for her discharge paperwork.
[2025-04-26 07:02] VITALS: BP 113/63; PULSE 43; RESP 22; TEMP 36.8; O2SAT 100
== END 2025-04-26 07:01 | disposition home or self-care (01) ==
PROVIDERS: Emergency Provider Internal Medicine
DX: T40.5X1A Poisoning by cocaine, accidental (unintentional), initial encounter (principal); T40.411A Poisoning by fentanyl or fentanyl analogs, accidental (unintentional), initial encounter; R40.4 Transient alteration of awareness; Y92.9 Unspecified place or not applicable; Z79.899 Other long term (current) drug therapy; Z71.51 Drug abuse counseling and surveillance of drug abuser
CPT/HCPCS: 99283; 99285

== ENCOUNTER 2025-05-05 02:22 | Emergency (ER) | payer MEDICAID, SELFPAY ==
[2025-05-05 02:26] VITALS: BP 142/76; PULSE 90; O2SAT 100; BMI 30.3
--- NOTE | 2025-05-05 02:44 | ED_ITS ---
HPI - Overdose General Chief Complaint: Overdose Stated Complaint: Overdose Time Seen by Provider: 05/05/25 02:39 Source: patient and EMS Mode of arrival: EMS Limitations: no limitations History of Present Illness ED Provider: Dr. Mariela Dubon HPI Narrative: Patient comes to the emergency room for a possible overdose. According to EMS, the patient was found by PD sleeping in a bench. According to EMS, they gave to the patient intranasal Narcan and patient woke up immediately. Patient denies that she used any drugs although there is clear history of overdoses and drug use. Patient comes in by ambulance, very belligerent. Patient does not want to be here and wants to be discharged. Related Data Home Medications ?Medication ?Instructions ?Recorded ?Confirmed No Known Home Meds 03/29/25 03/29/25 Allergies Allergy/AdvReac Type Severity Reaction Status Date / Time No Known Allergies (No Known Allergy Verified 05/05/25 02:30 Allergies*) Review of Systems Review of Systems: Constitutional : No Weight loss, No Fever, No Chills, No Night Sweats, No Fatigue, No Malaise ENT/Mouth : No Hearing loss, No Ear Pain, No Nasal Congestion, No Sinus Pain, No Hoarseness, No sore throat, No Rhinorrhea, No Swallowing Difficulty Eyes: No Eye Pain, No Swelling, No Redness, No Foreign Body, No Discharge, No Vision Changes Cardiovascular : No Chest Pain, No SOB, No Dyspnea on Exertion, No Orthopnea, No Edema, No Palpitations Respiratory : No Cough, No Sputum, No Wheezing, No Smoke Exposure, No Dyspnea Gastrointestinal : No Nausea, No Vomiting, No Diarrhea, No Constipation, No abdominal Pain, No Hematochezia, No Melena Genitourinary : no irregular bleeding, No Dysuria, No Urinary Frequency, No Hematuria, No Urinary Incontinence, No Urgency, No Flank Pain, No Urinary Flow Changes, No Hesitancy Musculoskeletal : No joint pain, No Myalgias, No Joint Swelling Skin : No Skin Lesions, No rash Neuro : No Weakness, No Numbness, No Paresthesias, No Loss of Consciousness, No Dizziness, No Headache Psych : No Anxiety/Panic, No Depression, No SI/HI/AH/VH, denies overdosing in drugs Heme/Lymph: No Bruising, No Bleeding,No Lymphadenopathy Endocrine : No Polyuria, No Polydipsia, No Temperature Intolerance PMFSH Past Medical History Medical History (Updated 05/05/25 @ 02:47 by Mariela Dubon MD) Polysubstance abuse Drug overdose Social History Social History Unable to assess alcohol history related to: Refusing to respond Alcohol intake: current Substance Use Type: Crack/Cocaine, Former Substance User and IV Drugs Physical Exam Exam: Exam: Appearance: Alert. Oriented X3. No acute distress. Eyes: Pupils equal, round and reactive to light. ENT: Pharynx normal. Neck: Normal inspection. Neck supple. No lymph nodes noted. No crepitus CVS: Normal heart rate and rhythm. Pulses normal. Normal S1 and S2 Respiratory: No respiratory distress. Breath sounds normal. No Wheezing. No rales Abdomen: Soft and nontender. No rigidity. No distention. Skin: Skin warm and dry. Normal skin color. Normal skin turgor. Extremities: No lower extremity edema. No Lacerations. No Rash Neuro: Oriented X 3. No motor deficit. No sensory deficit. Moving all extremities. No slurred speech. CN 2 through 12 grossly intact Psych: calm, cooperative, normal affect Vital Signs: Vital Signs: BMI result Body Mass Index 30.3 Medical Decision Making Medical Decision Making MDM Narrative: Patient was agreeable to get her vitals checked, patient's oxygen saturation, blood pressure and heart rate within normal limits. It was discussed with the patient that Narcan can wear off and he had can have overdose symptoms again, respiratory failure/depression. Patient states that she does not care because she did not use drugs and wants to be discharged. Declined SUDe eval Patient denies SI or HI Discharge Plan Discharge Clinical Impression: Drug overdose Patient Disposition: Home, Self-Care Instructions: Adult Overdose (ED) Additional Instructions: Overdose You were seen in our Emergency Department for an overdose today. You received narcan in order to reverse the effects of overdose. Narcan only lasts about 45 min to 1 hour in the system. You may have been given narcan to take home with you today, please keep it near you if you are going to use again, so others can use it if needed.? The number one risk for fatal overdose is using alone? [employer] is a 05/04 hotline where you can be on the phone with someone while you use, and they can call for help if they suspect an overdose: [phone] Things to look out for when you leave include severe vomiting or diarrhea, headaches, muscle cramps, fever, coughing, chest pain, or if you feel so short of breath you cannot walk to the bathroom. Please seek care and return any time for worsening symptoms.? You may have been provided with safer injection?items, please take time to take care of YOU and your health. Use new supplies whenever possible to lessen the chances of infections and other illnesses.? If you need more supplies, please go [facility],? [address] [place] [address] OR you can call or text to coordinate delivery of safer supplies. If you decide you want to stop or cut down on how much you?re using, please call the numbers on the list provided to you or you can come to our outpatient Addiction Treatment office [facility] (M-F 9am-5p) [address] [place] [address], [facility] [address] [place], [place]. [phone] Prescriptions: No Action No Known Home Meds Print Language: Indonesian
--- NOTE | 2025-05-05 02:46 | PC.NURSE ---
pt agitated states she doesnt want to stay, provider at bedside, v/s WNL. pt okay to leave,
[2025-05-05 03:16] VITALS: BP 122/88; PULSE 95; RESP 16; TEMP 36.5; O2SAT 93
== END 2025-05-05 03:17 | disposition home or self-care (01) ==
LOC: HO.ED 02:48
PROVIDERS: Emergency Provider Emergency Medicine
DX: T50.901A Poisoning by unspecified drugs, medicaments and biological substances, accidental (unintentional), initial encounter (principal); Y92.9 Unspecified place or not applicable; F14.10 Cocaine abuse, uncomplicated; Z71.51 Drug abuse counseling and surveillance of drug abuser
CPT/HCPCS: 99283; 99284

== ENCOUNTER 2025-05-28 10:55 | Emergency (ER) | payer MEDICAID, SELFPAY ==
[2025-05-28] VITALS (11 sets, daily range): BP systolic 93–117; BP diastolic 56–78; PULSE 63–83; RESP 8–18; TEMP 36.3–36.8; O2SAT 82–99; BMI 25.4
--- NOTE | 2025-05-28 11:19 | ED.GENADULT ---
HPI - General Adult General Chief complaint: Overdose Stated complaint: weak,lethrgic,unable to amb after crack use Time Seen by Provider: 05/28/25 11:19 History of Present Illness ED Provider: Julio GUZMAN narrative: The patient is a 55-year-old female with a history of substance use disorder who was brought to the hospital by ambulance after being found lying on the ground very weak. At 1st the patient told paramedics that she had used crack. After arrival here it was apparent that she also had heroin. The patient denies using these drugs and says that she is weak because she has not eaten for the last few days. Related Data Home Medications ?Medication ?Instructions ?Recorded ?Confirmed No Known Home Meds 03/29/25 03/29/25 Allergies Allergy/AdvReac Type Severity Reaction Status Date / Time No Known Allergies (No Known Allergy Verified 05/28/25 11:15 Allergies*) Review of Systems Review of Systems: Yes Unobtainable due to mental status PMFSH Past Medical History Medical History (Updated 05/29/25 @ 00:00 by Ally Pacheco) Polysubstance abuse Drug overdose Social History Social History Unable to assess alcohol history related to: Refusing to respond Alcohol intake: current Smoked in Last 30 Days: No Use of substances other than those prescribed or required for medical reasons: Yes Substance Use Type: Crack/Cocaine and Heroin Substance Use Frequency: Daily Last Used Substance: Just Prior to Admission Any prior treatment program specific to substance use: No Advance Directives: No Advance Directives Information Provided: Yes Do you have a plan to hurt others: No Plan Patient : No Physical Exam ED Vital Signs: Vital Signs - 24 hr 05/28/25 11:08 05/28/25 11:16 05/28/25 11:22 Temperature 98.3 F Pulse Rate 80 80 Respiratory Rate 18 18 Blood Pressure 102/69 102/69 Pulse Oximetry 93 93 Oxygen Delivery Method Room Air Room Air Oxygen Flow Rate 05/28/25 11:54 05/28/25 14:17 05/28/25 15:21 Temperature 97.5 F Pulse Rate 64 63 Respiratory Rate 8 L 18 10 L Blood Pressure 109/73 101/74 93/68 Pulse Oximetry 82 L 98 93 Oxygen Delivery Method Room Air Nasal Cannula Room Air Oxygen Flow Rate 2 05/28/25 16:56 05/28/25 19:55 05/28/25 19:56 Temperature 97.3 F Pulse Rate 80 66 Respiratory Rate 12 16 Blood Pressure 102/68 Pulse Oximetry 93 92 99 Oxygen Delivery Method Room Air Room Air Nasal Cannula Oxygen Flow Rate 1 05/28/25 21:18 Temperature 97.8 F Pulse Rate 66 Respiratory Rate 16 Blood Pressure 102/56 L Pulse Oximetry 99 Oxygen Delivery Method Oxygen Flow Rate BMI result Body Mass Index 25.4 Const Other: The patient is a well-developed 55-year-old who was very somnolent. She responded to loud verbal stimuli with a very quiet responses. She does not appear in acute pain or in respiratory distress. She did not appear uncomfortable or toxic, only somnolent. HENMT Other: The face is symmetrical. Mucous membranes moist. Eyes Other: Pinpoint pupils. Pupils were equal. Extraocular movements seemed intact. Conjunctivae clear Neck Neck: Yes normal visual inspection, Yes full ROM, Yes no lymphadenopathy and Yes no meningeal signs Resp Other: the patient had a slow respiratory rate. Lungs seemed clear. Cardio Other: No murmur heard Rate: regular rate Rhythm: regular rhythm Heart sounds: S1 normal heart sound present and S2 normal heart sound present GI Other: Abdomen is soft and nontender Skin Other: no obvious signs of significant track aj. Skin was dry and unremarkable. Neuro Other: The patient was somnolent. She had small pupils. She could be arousable with loud verbal and tactile stimuli. She aroused normally to a very diminished level of alertness but was able to answer a few questions with understandable answers. Face was symmetrical. Tone was symmetrical. No obvious focal findings. General: no meningeal signs Extrem Other: No swelling or deformities to the extremities. No peripheral edema. Medications Administered Discontinued Medications Generic Name Dose Route Start Last Admin Trade Name Alonq PRN Reason Stop Dose Admin Naloxone HCl 8 mg 05/28/25 20:28 05/28/25 21:01 Naloxone Hcl Nasal Take Home 4 Mg [place] NOSTRILALT 05/28/25 20:29 8 mg ONCE ONE Administration Medical Decision Making Medical Decision Making MDM Narrative: The patient was brought to the hospital because of an altered mental status. Apparently there was concern that she had overdosed on practice. She struck me as much more of an opioid overdose and nursing reported that they had found bags of what looked like heroin on her person. She was able to maintain oxygen saturation with 2 L nasal cannula. I do not feel there was an indication for naloxone. She was allowed to sleep off her high. Labs were unremarkable. Ultimately she was awake and able to eat food. She denied any overdose. She was comfortable with being discharged. She was given a Narcan pack at discharge and advised to try to contact the [facility] if she wants to try to stop drug use. Lab Data 05/28/25 11:43 05/28/25 11:43 Labs: Lab Results 05/28/25 05/28/25 Range/Units 11:43 20:32 WBC 7.0 (4.8-10.8) X10*3/uL RBC 4.55 (4.20-5.50) X10*6/uL Hgb 13.6 (12.0-16.0) g/dl Hct 40.5 (37.0-47.0) % MCV 89.0 (80.0-98.0) fL MCH 29.9 (27.0-33.0) pg MCHC 33.6 (31.0-35.0) g/dl RDW 14.0 (11.0-16.0) % Plt Count 241 (160-400) X10*3/uL MPV 9.1 L (9.4-12.3) fL Immature Gran % (Auto) 0.4 (0.0-0.4) % Neut % (Auto) 64.2 (45-73) % Lymph % (Auto) 23.3 (20-40) % [place] % (Auto) 7.7 (2-11) % Eos % (Auto) 3.4 (0-4) % Baso % (Auto) 1.0 (0-2) % Lymph # (Auto) 1.6 (1.2-4.9) X10*3/uL [place] # (Auto) 0.5 (0.1-1.2) X10*3/uL Eos # (Auto) 0.2 (0.0-0.4) X10*3/uL Baso # (Auto) 0.1 (0.0-0.2) X10*3/uL Abs Immat Gran (auto) 0.03 (0.00-0.03) X10*3/uL Absolute Neuts (auto) 4.5 (2.0-8.3) x10*3/uL Absolute Nucleated RBC 0.000 (0.0-0.012) X10*3/uL Nucleated RBC % (auto) 0.0 (0.0-0.2) /100WBC Sodium 141 (135-145) mmol/L Potassium 4.2 (3.3-5.1) mmol/L Chloride 105 (96-108) mmol/L Carbon Dioxide 30 H (22-29) mmol/L Anion Gap 10 L (12-20) BUN 9 (9-16) mg/dL Creatinine 0.58 (0.5-1.4) mg/dL Estim Creat Clear Calc 86.2 Estimated GFR > 60 Random Glucose 103 (60-115) mg/dL Calcium 8.9 D (8.4-10.2) mg/dL Total Bilirubin 0.4 (0.0-1.0) mg/dL Direct Bilirubin 0.1 (0.0-0.5) mg/dL AST 21 (5-31) U/L ALT 17 (0-31) U/L Alkaline Phosphatase 62 (39-117) U/L Total Protein 7.1 (6.5-8.0) g/dL Albumin 4.2 (3.5-5.0) g/dL Urine Color Yellow Urine Appearance Cloudy Urine pH 6.5 (5.0-9.0) Ur Specific [place] 1.020 (1.005-1.025) Urine Protein Negative (Neg-Trace) mg/dL Urine Glucose (UA) Negative (Negative) mg/dL Urine Ketones Negative (Negative) mg/dL Urine Blood Negative (Negative) Urine Nitrite Negative (Negative) Ur Leukocyte Esterase Trace H (Negative) Urine RBC 0-2 (0-2) /HPF Urine WBC 0-5 (0-5) /HPF Ur Squamous Epith Cells 3-5 (0-2) /HPF Urine Bacteria 1+ (None Seen) Hyaline Casts 0-2 (0-2) /LPF Urine Opiates Screen POSITIVE H (Not Detect) Ur Buprenorphine Scrn Not Detected (Not Detect) ng/mL Ur Oxycodone Screen Not Detected (Not Detect) ng/mL Urine Methadone Screen Not Detected (Not Detect) ng/mL Urine Fentanyl Screen POSITIVE H (Not Detect) Acetaminophen < 3 (<30) mcg/mL Ur Barbiturates Screen Not Detected (Not Detect) Ur Phencyclidine Scrn Not Detected (Not Detect) Ur Amphetamines Screen Not Detected (Not Detect) U Benzodiazepines Scrn Not Detected (Not Detect) Urine Cocaine Screen POSITIVE H (Not Detect) U Marijuana (THC) Screen Not Detected (Not Detect) Ethyl Alcohol < 10 mg/dL Discharge Plan Discharge Clinical Impression: Drug overdose Patient Disposition: Home, Self-Care Instructions: Adult Overdose (ED) Additional Instructions: I believe that you had an overdose today. You has been given a kit for naloxone (Narcan). Please keep this with the use of the you can use it for yourself or others in case of need. Please follow up with your regular doctor's office. If at any point you wish to speak to somebody about trying to stop drug use you can follow up with the [facility] at [facility]. Please see the contact information below. Opiate use disorder You were seen in our Emergency Department today for treatment of opiate use disorder. You may have been dosed with medication for opiate use disorder (MOUD) in the form of suboxone or methadone. You may experience feeling some withdrawal symptoms and this is normal. The? dose in the Emergency Department is a starting dose and meant to be titrated up once you follow up with a clinic. Please do not feel discouraged, it is a process. The nurse has reviewed with you where to follow up and what information to bring with you, to continue treatment. You also may have been given naloxone (narcan) to take home with you. This medication is used to potentially treat opiate overdose. If you decide you want to stop or cut down on how much you?re using, you can call or walk into our outpatient Addiction Treatment office: [facility] (M-F 9am-5p) [address], [address] [phone] You may have been provided with safer injection?items, please take time to take care of YOU and your health. Use new supplies whenever possible to lessen the chances of infections and other illnesses.? ?If you need more supplies, please go [facility],? [address], [place] you can call or text to coordinate delivery of safer supplies. You were also provided a list of several treatment providers in the area.? If you experience any worsening symptoms you cannot control please return to the ED or call 911. Please follow up at your next appointment. Things to look out for are fevers, chest pain, shortness of breath, severe pain, dizziness, fainting or any other concerns. Prescriptions: No Action No Known Home Meds Referrals: [facility] [Provider Group] Tila Steel MD [Physician, Internal Medicine] Interventions: ED Discharge Assessment Last Done: 05/28/25 21:18 Discharge Date/Time: 05/28/25 21:19 Print Language: [place]
--- NOTE | 2025-05-28 11:20 | ECG_ITS ---
Test Reason : OD Blood Pressure : */* mmHG Vent. Rate : 79 BPM Atrial Rate : 79 BPM P-R Int : 132 ms QRS Dur : 68 ms QT Int : 396 ms P-R-T Axes : 43 72 43 degrees QTcB Int : 454 ms Sinus rhythm with Fusion complexes Otherwise normal ECG When compared with ECG of 14-Apr-2025 17:22, Fusion complexes are now Present Referred By: Raúl Kim Electronically Signed By: BRIANDA SHARMA
--- NOTE | 2025-05-28 11:22 | PC.NURSE ---
55 F presents to ED after smoking ?heroine or ?crack, pt not really talking to me, denies using drugs today but heroine was found on her, pt appears to be high, lethargic but responsive to verbal stimuli. RR even and unlabored, denies CP or SOB. No visible s/s of distress.
[2025-05-28 11:47] LABS: MANUAL DIFF FLAG NO
[2025-05-28 11:48] LABS: Hematocrit 40.5 % (37.0-47.0); Hemoglobin 13.6 g/dl (12.0-16.0); Imm Gran Abs Auto 0.03 X10*3/uL (0.00-0.03); Imm Gran Pct Auto 0.4 % (0.0-0.4); Lymphocytes Absolute Auto 1.6 X10*3/uL (1.2-4.9); Mean Corpuscular HGB Conc 33.6 g/dl (31.0-35.0); Mean Corpuscular Hemoglobin 29.9 pg (27.0-33.0); Mean Corpuscular Volume 89.0 fL (80.0-98.0); NRBC Abs Auto 0.000 X10*3/uL (0.0-0.012); NRBC Pct Auto 0.0 /100WBC (0.0-0.2); Platelet Count 241 X10*3/uL (160-400); Red Blood Count 4.55 X10*6/uL (4.20-5.50); White Blood Count 7.0 X10*3/uL (4.8-10.8)
--- NOTE | 2025-05-28 11:56 | PC.NURSE ---
pt's oxygen dropped to 82% on room air and pt is breathing about 8 a min, pt put on 2l on nasal cannual improved to 94-96% and capnography reading 20, md aware
[2025-05-28 12:02] LABS: Alanine Aminotransferase 17 U/L (0-31); Albumin Level 4.2 g/dL (3.5-5.0); Alkaline Phosphatase 62 U/L (39-117); Anion Gap 10 (12-20); Aspartate Amino Transferase 21 U/L (5-31); Blood Urea Nitrogen 9 mg/dL (9-16); Calcium 8.9 mg/dL (8.4-10.2); Carbon Dioxide 30 mmol/L (22-29); Chloride 105 mmol/L (96-108); Creatinine Clr Calc Pharmacy 86.2; Estimated Glomerular Filt Rate > 60; Potassium 4.2 mmol/L (3.3-5.1); Sodium 141 mmol/L (135-145); Total Protein 7.1 g/dL (6.5-8.0)
[2025-05-28 12:08] LABS: Acetaminophen LAB < 3 mcg/mL (<30)
--- NOTE | 2025-05-28 20:24 | MHC.EDTECH ---
pt able to eat and void at this time. urine specimen sent. pt able to ambulate to the bathroom and get back into bed with minimal assistance.
[2025-05-28 20:41] LABS: Appearance Urine Cloudy; Glucose Urine UA Negative (Negative); PH 6.5 (5.0-9.0); Specific Gravity - Urine 1.020 (1.005-1.025); UMIC TRIGGER UACC YES
[2025-05-28 20:49] LABS: Cannabinoid Screen Urine Not Detected (Not Detect)
[2025-05-28] MEDS: Naloxone HCl Nasal TAKE HOME 4 MG SPRAY 8 MG NOSTRILALT (21:01)
== END 2025-05-28 21:19 | disposition home or self-care (01) ==
PROVIDERS: Emergency Provider Emergency Medicine
DX: T40.601A Poisoning by unspecified narcotics, accidental (unintentional), initial encounter (principal); R94.31 Abnormal electrocardiogram [ECG] [EKG]; Z51.81 Encounter for therapeutic drug level monitoring; Z79.899 Other long term (current) drug therapy; Z71.51 Drug abuse counseling and surveillance of drug abuser
CPT/HCPCS: 36415; 80048; 80076; 80143; 80307; 81001; 85025; 93005; 99283; 99285

== ENCOUNTER → 2025-05-28 11:20 | Outpatient (BNV) | payer MEDICAID, SELFPAY | PROVIDERS: Emergency Provider Emergency Medicine; Visit Provider Internal Medicine | DX: T50.901A Poisoning by unspecified drugs, medicaments and biological substances, accidental (unintentional), initial encounter (principal) | CPT/HCPCS: 93010 ==